=== PATIENT | male | born 1975 | race Caucasian/White ===

== ENCOUNTER 2016-10-20 13:14 | Inpatient (IN) | payer BC ==
[~2016-10-20] VITALS: Ht 185.4 cm; Wt 88.1 kg
[2016-10-20] MEDS ORDERED: SODIUM CHLORIDE 0.9% 1000ML 1,000 ML IV STA (14:31)
[2016-10-20] MEDS ORDERED: MECLIZINE HCL 25 MG TAB PO STA (14:31)
--- NOTE | 2016-10-20 14:37 | EMERGENCY ROOM VISIT NOTE ---
History Report prepared by Anel: Robbie Ramos Under the Supervision of: Cait CruzO. First contact with patient: 14:27 Chief Complaint: DIZZY Stated Complaint: DIZZINESS,LIGHHEADED,DISORIENTED,HEADACHE Nursing Triage Summary: triage ntoe: pt ambulatory to triage. pt reports he has been lightheaded and dizzy since thursday afternoon. History of Present Illness The patient is a 41 year old male who presents to the Emergency Room with complaints of intermittent dizziness that started 2 days ago. He says when he gets dizzy, the room spins and he gets lightheaded. The patient states that eating at times makes the dizziness worse. He adds that he has had trouble walking due to the dizziness, and starting yesterday he has had a headache on the back of his right side. The patient says he has no family doctor currently, and has not been seen for his dizziness so far. The patient states that in the past, he would get dizzy spells occasionally but the spells would go away after a couple hours. He denies any nausea, vomiting, ear ringing, or abdominal pain. The patient states that he has no chronic medical conditions and does not take any daily medications. He denies working outside recently for long periods at a time. Source of History: patient Onset: 2 days ago Position: other (global - dizziness) Quality: other (room spinning) Timing: other (intermittent) Modifying Factors (Worsening): eating Associated Symptoms: + headache, No nausea, No vomiting, No abdominal pain Note: Associated symptoms: Lightheadedness, trouble walking. Denies ear ringing. Review of Systems See HPI for pertinent positives & negatives. A total of 10 systems reviewed and were otherwise negative. Past Medical & Surgical Medical Problems: (1) Abnormal gait (2) No chronic problems Surgical Problems: (1) History of hernia surgery Family History No pertinent family history Social History Smoking Status: Current Every Day Smoker Drug Use: none Marital Status: Housing Status: lives with family Occupation Status: employed Current/Historical Medications No Active Prescriptions or Reported Meds Allergies Coded Allergies: No Known Allergies (Unverified , 10/20/16) Physical Exam Vital Signs Date Time Temp Pulse Resp B/P (MAP) Pulse Ox O2 Delivery O2 Flow Rate FiO2 10/20/16 19:12 Room Air 10/20/16 18:26 83 20 141/77 99 Room Air 10/20/16 16:37 73 16 138/87 97 Room Air 10/20/16 15:22 66 16 154/90 100 Room Air 10/20/16 14:48 72 152/94 75 155/100 81 144/106 10/20/16 14:36 77 10/20/16 13:29 36.9 72 18 153/90 99 Room Air Physical Exam GENERAL: Patient is awake, alert, and in no acute distress. Patient is resting comfortably and showing no signs of anxiety EYES: The conjunctivae are clear. The pupils are round and reactive. EARS, NOSE, MOUTH AND THROAT: The nose is without any evidence of any deformity. Mucous membranes are moist tongue is midline NECK: The neck is nontender and supple. RESPIRATORY: Normal respiratory effort is noted there is no evidence of wheezing rhonchi or rales CARDIOVASCULAR: Regular rate and rhythm noted there no murmurs rubs or gallops normal S1 normal S2 GASTROINTESTINAL: The abdomen is soft. Bowel sounds are present in all quadrants. Abdomen is nontender MUSCULOSKELETAL/EXTREMITIES: There is no evidence of gross deformity full range of motion is noted in the hips and shoulders SKIN: There is no obvious evidence of any rash. There are no petechiae, pallor or cyanosis noted. NEUROLOGIC: Patient is awake alert and oriented x3 strength is symmetric patellar reflexes are 2+ bilaterally Medical Decision & Procedures ER Provider Diagnostic Interpretation: Radiology results as stated below per my review and radiologist interpretation: HEAD WITHOUT CONTRAST (CT) CLINICAL HISTORY: 41 years-old Male presenting with EVALUATE ALTERED MENTAL STATUS/WEAKNESS. TECHNIQUE: Multidetector CT imaging of the head was performed without the use of intravenous contrast. IV contrast: None. A dose lowering technique was used consistent with the principles of ALARA (as low as reasonably achievable). COMPARISON: None. CT DOSE (mGy.cm): The estimated cumulative dose is 691.05 mGy.cm. FINDINGS: Casino Host topogram: Unremarkable. Symmetric apparent dilatation of the temporal horns of the lateral ventricles out of proportion to the size of the remainder of the lateral ventricles. The occipital horns and third ventricle are nondilated. No periventricular hypoattenuation to suggest transependymal flow of CSF. No obstructing mass is noted in the region of the foramen of Humphreys. Brain parenchyma normal in appearance with preserved leach-white differentiation. No mass effect or midline shift. No hemorrhage or acute territorial infarct. No extra-axial fluid collection. Paranasal sinuses and mastoid air cells clear. Calvarium intact. IMPRESSION: 1. Symmetric dilatation of the temporal horns of the lateral ventricles, unexpected for the patient's age. This raises concern for hydrocephalus, however, no other evidence to corroborate this diagnosis. Further evaluation with brain MR could be considered as clinically warranted. 2. No other evidence of acute intracranial pathology. Electronically signed by: Mateo Byrnes M.D. 10/20/2016 3:10 PM Dictated Date/Time: 10/20/2016 3:05 PM CHEST ONE VIEW PORTABLE CLINICAL HISTORY: 41 years-old Male presenting with EVALUATE ALTERED MENTAL STATUS/WEAKNESS. TECHNIQUE: Portable upright AP view of the chest was obtained. COMPARISON: None. FINDINGS: Cardiomediastinal silhouette normal. Lungs and pleural spaces clear. Osseous structures normal. Upper abdomen normal. IMPRESSION: 1. No acute cardiopulmonary disease. Electronically signed by: Mateo Byrnes M.D. 10/20/2016 3:20 PM Dictated Date/Time: 10/20/2016 3:19 PM MRI OF THE BRAIN WITHOUT IV CONTRAST CLINICAL HISTORY: Vertigo. Abnormal CT. COMPARISON STUDY: CT of the brain dated 10/20/2016. TECHNIQUE: MRI of the brain was performed utilizing various T1 and T2-weighted sequences in the axial, sagittal, and coronal planes. IV contrast was not administered for this examination. FINDINGS: Brain parenchyma: There are numerous small foci of T2 signal abnormality scattered throughout the subcortical and periventricular white matter. There is no hemorrhage or mass effect. There is no restricted diffusion to suggest acute ischemia. Leach-white matter differentiation is preserved. No extra-axial fluid collection is seen. The cerebellar tonsils are normal in configuration. Ventricles, sulci, and cisterns: Normal in configuration. Pituitary and sella: Unremarkable. Intracranial vasculature: Normal flow voids are maintained at the skull base. Orbits: The bony orbits are grossly intact. Orbital contents are normal in appearance. Sinuses and mastoids: There is trace mucosal thickening in the left maxillary antrum. The remaining paranasal sinuses and mastoid air cells are clear. Calvarium: Unremarkable. Cervical cord: Partially visualized cervical spinal cord is normal in morphology and signal intensity. IMPRESSION: 1. No acute intracranial abnormality. 2. There is no evidence of hydrocephalus as questioned on the brain CT. 3. There are numerous small foci of T2 signal abnormality scattered throughout the subcortical and periventricular white matter. The appearance is nonspecific and this could represent age advanced microangiopathic change, or less likely a demyelinating process such as multiple sclerosis versus an infectious process such as Lyme disease. Clinical correlation will be essential. Electronically signed by: Luis A Flowers M.D. 10/20/2016 5:21 PM Dictated Date/Time: 10/20/2016 5:14 PM Laboratory Results 10/20/16 14:30 Red Blood Count 5.23, Mean Corpuscular Volume 82.6, Mean Corpuscular Hemoglobin 30.0, Mean Corpuscular Hemoglobin Concent 36.3, Mean Platelet Volume 10.4, Neutrophils (%) (Auto) 76.0, Lymphocytes (%) (Auto) 16.7, Monocytes (%) (Auto) 4.9, Eosinophils (%) (Auto) 1.5, Basophils (%) (Auto) 0.5, Neutrophils # (Auto) 7.70, Lymphocytes # (Auto) 1.69, Monocytes # (Auto) 0.50, Eosinophils # (Auto) 0.15, Basophils # (Auto) 0.05 10/20/16 14:30 Test 10/20/16 14:30 10/20/16 15:25 White Blood Count 10.13 K/uL (4.8-10.8) Red Blood Count 5.23 M/uL (4.7-6.1) Hemoglobin 15.7 g/dL (14.0-18.0) Hematocrit 43.2 % (42-52) Mean Corpuscular Volume 82.6 fL (80-100) Mean Corpuscular Hemoglobin 30.0 pg (25-34) Mean Corpuscular Hemoglobin Concent 36.3 g/dl (32-36) Platelet Count 208 K/uL (130-400) Mean Platelet Volume 10.4 fL (7.4-10.4) Neutrophils (%) (Auto) 76.0 % Lymphocytes (%) (Auto) 16.7 % Monocytes (%) (Auto) 4.9 % Eosinophils (%) (Auto) 1.5 % Basophils (%) (Auto) 0.5 % Neutrophils # (Auto) 7.70 K/uL (1.4-6.5) Lymphocytes # (Auto) 1.69 K/uL (1.2-3.4) Monocytes # (Auto) 0.50 K/uL (0.11-0.59) Eosinophils # (Auto) 0.15 K/uL (0-0.5) Basophils # (Auto) 0.05 K/uL (0-0.2) RDW Standard Deviation 37.2 fL (36.4-46.3) RDW Coefficient of Variation 12.4 % (11.5-14.5) Immature Granulocyte % (Auto) 0.4 % Immature Granulocyte # (Auto) 0.04 K/uL (0.00-0.02) Prothrombin Time 10.7 SECONDS (9.0-12.0) Prothromb Time International Ratio 1.0 (0.9-1.1) Activated Partial Thromboplast Time 27.5 SECONDS (21.0-31.0) Partial Thromboplastin Ratio 1.1 Anion Gap 4.0 mmol/L (3-11) Est Creatinine Clear Calc Drug Dose 116.7 ml/min Estimated GFR () 114.9 Estimated GFR (Non- 99.2 BUN/Creatinine Ratio 8.4 (10-20) Calcium Level 8.4 mg/dl (8.5-10.1) Magnesium Level 2.2 mg/dl (1.8-2.4) Total Bilirubin 0.6 mg/dl (0.2-1) Direct Bilirubin 0.1 mg/dl (0-0.2) Aspartate Amino Transf (AST/SGOT) 17 U/L (15-37) Alanine Aminotransferase (ALT/SGPT) 22 U/L (12-78) Alkaline Phosphatase 97 U/L (45-117) Troponin I < 0.015 ng/ml (0-0.045) Total Protein 6.7 gm/dl (6.4-8.2) Albumin 3.6 gm/dl (3.4-5.0) Lipase 105 U/L (73-393) Thyroid Stimulating Hormone (TSH) 0.865 uIu/ml (0.300-4.500) Lyme Disease IgG Antibody NEG (NEG) Lyme Disease IgM Antibody NEG (NEG) Urine Color YELLOW Urine Appearance CLEAR (CLEAR) Urine pH 5.5 (4.5-7.5) Urine Specific Landers 1.016 (1.000-1.030) Urine Protein NEG (NEG) Urine Glucose (UA) NEG (NEG) Urine Ketones NEG (NEG) Urine Occult Blood NEG (NEG) Urine Nitrite NEG (NEG) Urine Bilirubin NEG (NEG) Urine Urobilinogen NEG (NEG) Urine Leukocyte Esterase NEG (NEG) Laboratory results per my review. Medications Administered Medications (Trade) Dose Ordered Sig/Elda Route Start Time Stop Time Status Last Admin Dose Admin Sodium Chloride 1,000 ml @ 999 mls/hr Q1H1M STAT IV 10/20/16 14:31 10/20/16 15:31 DC 10/20/16 15:22 999 MLS/HR Meclizine HCl (Antivert Tab) 25 mg NOW STAT PO 10/20/16 14:31 10/20/16 14:33 DC 10/20/16 15:22 25 MG ECG Indication: other (dizzy) Rate (beats per minute): 69 Rhythm: normal sinus Findings: no ectopy, other (no acute ST segment abnormalities) ED Course 1430: The patient was evaluated in room B4B. A complete history and physical examination were performed. 1431: Ordered Antivert Tab 25 mg PO, NSS 1000 ml @ 999 mls/hr IV. 1812: I reevaluated the patient and he is resting. The patient verbally expressed understanding and agreement with the treatment plan. The patient will be evaluated for further treatment. 1821: I discussed the patient with Dr. Ritesh Camacho firearms assembly supervisor. He will evaluate the patient for further treatment. Medical Decision Differential diagnosis: Etiologies such as benign positional vertigo, dehydration, hypovolemia, anemia, tumor, infection, hypoglycemia, electrolyte abnormalities, cardiac sources, intracerebral event, toxicologic, neurologic, as well as others were entertained. Medication Reconciliation: I attest that I have personally reviewed the patient' s current medications list. There are no medications on the list. Patient was found to have a slightly elevated blood pressure due to circumstances. The patient is a 41-year-old male who presented to the emergency department for evaluation of dizziness and headache. Patient did not have any focal neurologic deficits. He had an CT the brain which was noted to have hydrocephalus. This reason an MRI was recommended by the radiologist and was obtained in the emergency department. I discussed the patient's laboratory radiographic studies with him including his MRI report. Given the findings I do feel he may need further inpatient evaluation and workup for possible CVA. This reason I discussed his case with the on-call [facility] hospitalist group. They've agreed to evaluate the patient in the emergency apartment for further management and disposition. Consults Time Called: 1814 Consulting Physician: Dr. Ritesh Camacho firearms assembly supervisor Returned Call: 1820 I discussed the patient with Dr. Ritesh Camacho firearms assembly supervisor. He will evaluate the patient for further treatment. Impression Primary Impression: Vertigo Additional Impression: Abnormal MRI Scribe Attestation The scribe's documentation has been prepared under my direction and personally reviewed by me in its entirety. I confirm that the note above accurately reflects all work, treatment, procedures, and medical decision making performed by me. Departure Information Dispostion Being Evaluated By Hospitalist Prescriptions No Active Prescriptions or Reported Meds Referrals No Doctor, Assigned (PCP) Patient Instructions My [facility] Health Problem Qualifiers
[2016-10-20 15:01] LABS: BASO % 0.5 %; BASO ABS # 0.05 K/uL (0-0.2); COMPLETE YES; EOS % 1.5 %; HEMATOCRIT 43.2 % (42-52); IG% 0.4 %; LYMPH % 16.7 %; LYMPH ABS # 1.69 K/uL (1.2-3.4); MEAN CELL VOLUME 82.6 fL (80-100); MEAN CORPUSCULAR HGB CONC 36.3 g/dl (32-36); MEAN PLATELET VOLUME 10.4 fL (7.4-10.4); MONO % 4.9 %; PLATELET COUNT 208 K/uL (130-400); RED BLOOD COUNT 5.23 M/uL (4.7-6.1); WHITE BLOOD COUNT 10.13 K/uL (4.8-10.8)
[2016-10-20 15:08] LABS: PARTIAL THROMBOPLASTIN RATIO 1.1; PROTHROMBIN TIME (PATIENT) 10.7 SECONDS (9.0-12.0)
--- NOTE | 2016-10-20 15:12 | DIAGNOSTIC IMAGING REPORT ---
HEAD WITHOUT CONTRAST (CT) CLINICAL HISTORY: 41 years-old Male presenting with EVALUATE ALTERED MENTAL STATUS/WEAKNESS. TECHNIQUE: Multidetector CT imaging of the head was performed without the use of intravenous contrast. IV contrast: None. A dose lowering technique was used consistent with the principles of ALARA (as low as reasonably achievable). COMPARISON: None. CT DOSE (mGy.cm): The estimated cumulative dose is 691.05 mGy.cm. FINDINGS: Metal Stamping Machine Operator topogram: Unremarkable. Symmetric apparent dilatation of the temporal horns of the lateral ventricles out of proportion to the size of the remainder of the lateral ventricles. The occipital horns and third ventricle are nondilated. No periventricular hypoattenuation to suggest transependymal flow of CSF. No obstructing mass is noted in the region of the foramen of Humphreys. Brain parenchyma normal in appearance with preserved taylor-white differentiation. No mass effect or midline shift. No hemorrhage or acute territorial infarct. No extra-axial fluid collection. Paranasal sinuses and mastoid air cells clear. Calvarium intact. IMPRESSION: 1. Symmetric dilatation of the temporal horns of the lateral ventricles, unexpected for the patient's age. This raises concern for hydrocephalus, however, no other evidence to corroborate this diagnosis. Further evaluation with brain MR could be considered as clinically warranted. 2. No other evidence of acute intracranial pathology. Electronically signed by: Mateo Byrnes M.D. 10/20/2016 3:10 PM Dictated Date/Time: 10/20/2016 3:05 PM
--- NOTE | 2016-10-20 15:21 | DIAGNOSTIC IMAGING REPORT ---
CHEST ONE VIEW PORTABLE CLINICAL HISTORY: 41 years-old Male presenting with EVALUATE ALTERED MENTAL STATUS/WEAKNESS. TECHNIQUE: Portable upright AP view of the chest was obtained. COMPARISON: None. FINDINGS: Cardiomediastinal silhouette normal. Lungs and pleural spaces clear. Osseous structures normal. Upper abdomen normal. IMPRESSION: 1. No acute cardiopulmonary disease. Electronically signed by: Mateo Byrnes M.D. 10/20/2016 3:20 PM Dictated Date/Time: 10/20/2016 3:19 PM
[2016-10-20 15:25] LABS: ALT/SGPT 22 U/L (12-78); AST/SGOT 17 U/L (15-37); BLOOD UREA NITROGEN 8 mg/dl (7-18); BUN/CREATININE RATIO 8.4 (10-20); CALCIUM 8.4 mg/dl (8.5-10.1); CARBON DIOXIDE 29 mmol/L (21-32); CHLORIDE 109 mmol/L (98-107); CREATININE 0.96 mg/dl (0.60-1.40); GLUCOSE 80 mg/dl (70-99); MAGNESIUM 2.2 mg/dl (1.8-2.4); POTASSIUM 3.8 mmol/L (3.5-5.1); SODIUM 142 mmol/L (136-145)
[2016-10-20 15:36] LABS: ALKALINE PHOSPHATASE 97 U/L (45-117); THYROID STIMULATING HORMONE 0.865 uIu/ml (0.300-4.500)
[2016-10-20 15:37] LABS: MANUAL MICROSCOPIC REQUIRED? NO; REVIEW REQ? NO; URINE APPEARANCE CLEAR (CLEAR); URINE BILIRUBIN NEG (NEG); URINE COLOR YELLOW; URINE NITRITE NEG (NEG); URINE PH 5.5 (4.5-7.5); URINE SPECIFIC GRAVITY 1.016 (1.000-1.030); UROBILINOGEN NEG (NEG)
--- NOTE | 2016-10-20 17:23 | DIAGNOSTIC IMAGING REPORT ---
MRI OF THE BRAIN WITHOUT IV CONTRAST CLINICAL HISTORY: Vertigo. Abnormal CT. COMPARISON STUDY: CT of the brain dated 10/20/2016. TECHNIQUE: MRI of the brain was performed utilizing various T1 and T2-weighted sequences in the axial, sagittal, and coronal planes. IV contrast was not administered for this examination. FINDINGS: Brain parenchyma: There are numerous small foci of T2 signal abnormality scattered throughout the subcortical and periventricular white matter. There is no hemorrhage or mass effect. There is no restricted diffusion to suggest acute ischemia. Leach-white matter differentiation is preserved. No extra-axial fluid collection is seen. The cerebellar tonsils are normal in configuration. Ventricles, sulci, and cisterns: Normal in configuration. Pituitary and sella: Unremarkable. Intracranial vasculature: Normal flow voids are maintained at the skull base. Orbits: The bony orbits are grossly intact. Orbital contents are normal in appearance. Sinuses and mastoids: There is trace mucosal thickening in the left maxillary antrum. The remaining paranasal sinuses and mastoid air cells are clear. Calvarium: Unremarkable. Cervical cord: Partially visualized cervical spinal cord is normal in morphology and signal intensity. IMPRESSION: 1. No acute intracranial abnormality. 2. There is no evidence of hydrocephalus as questioned on the brain CT. 3. There are numerous small foci of T2 signal abnormality scattered throughout the subcortical and periventricular white matter. The appearance is nonspecific and this could represent age advanced microangiopathic change, or less likely a demyelinating process such as multiple sclerosis versus an infectious process such as Lyme disease. Clinical correlation will be essential. Electronically signed by: Luis A Flowers M.D. 10/20/2016 5:21 PM Dictated Date/Time: 10/20/2016 5:14 PM
[2016-10-20 18:46] LABS: LYME DISEASE AB IGG NEG (NEG); LYME DISEASE AB IGM NEG (NEG)
[2016-10-20 19:12] VITALS: Ht 185.4 cm; Wt 88.1 kg
[2016-10-20] MEDS ORDERED: ENOXAPARIN 40 MG/0.4 ML SYR SQ SCH (19:30)
[2016-10-20] MEDS ORDERED: ONDANSETRON INJ 2 MG/ML 2 ML VIAL IV PRN (19:30)
--- NOTE | 2016-10-20 19:45 | History and Physical ---
History & Physical Date & Time of Service: Oct 20, 2016 at 19:28 Chief Complaint: Dizziness,Lighheaded,Disoriented,Headache Primary Care Physician: No Doctor, Assigned History of Present Illness Patient is a 41yo man with no known PMH who presents with dizziness over the past two days. Dizziness is intermittent and is described as the room spinning with lightheadedness. States that dizziness is made worse with positional changes and after eating. Patient has experienced dizziness similar to this in the past but for only 1-2 hours at a time before resolving on its own. Associated symptoms include unsteady ambulation, with swaying from side to side. Patient can walk on his own but has to hold onto something for stability. Also endorses a dull headache on the back R side and generalized fatigue. Denies fever, chills, neck stiffness, confusion, LOC, decreased visual acuity, CP, SOB, nausea, vomiting, abdominal pain, weakness of lower extremities or a new rash. Does not have a PCP. States that his insurance stopped covering his previous PCP and he is looking for a new one. Denies a history of stroke, head injury, seizure, heart arrhythmia, Lyme disease. Denies tobacco, alcohol or illicit drug use. Past Medical/Surgical History Medical Problems: (1) No chronic problems Status: Chronic Surgical Problems: (1) History of hernia surgery Status: Resolved Family History No pertinent family history Social History Smoking Status: Never Smoker Alcohol Use: none Drug Use: none Marital Status: Occupational Status: employed Allergies Coded Allergies: No Known Allergies (Unverified , 10/20/16) Home Medications No Active Prescriptions or Reported Meds Review of Systems Ten systems reviewed and negative except as noted in the HPI. Physical Exam Vital Signs Date Time Temp Pulse Resp B/P (MAP) Pulse Ox O2 Delivery O2 Flow Rate FiO2 10/20/16 19:12 Room Air 10/20/16 18:26 83 20 141/77 99 Room Air 10/20/16 16:37 73 16 138/87 97 Room Air 10/20/16 15:22 66 16 154/90 100 Room Air 10/20/16 14:48 72 152/94 75 155/100 81 144/106 10/20/16 14:36 77 10/20/16 13:29 36.9 72 18 153/90 99 Room Air General Appearance: WD/WN, no apparent distress Head: normocephalic, atraumatic Eyes: normal inspection, PERRL, EOMI (no nystagmus ), sclerae normal ENT: hearing grossly normal Neck: supple, no adenopathy, trachea midline Respiratory/Chest: chest non-tender, lungs clear, normal breath sounds, no respiratory distress, no accessory muscle use Cardiovascular: regular rate, rhythm, no edema, no murmur, normal peripheral pulses Abdomen/GI: normal bowel sounds, non tender, soft, no organomegaly Back: normal inspection, no CVA tenderness Extremities/Musculoskelatal: normal inspection, no calf tenderness, normal capillary refill, no pedal edema Neurologic/Psych: plastic printer II-XII nml as tested, no motor/sensory deficits, alert, normal mood/affect, oriented x 3, + abnormal gait (Ataxic with swaying side to side. + Romberg test) Skin: normal color, warm/dry, no rash Diagnostics Laboratory Results Results Past 24 Hours Test 10/20/16 14:30 10/20/16 15:25 Range/Units White Blood Count 10.13 4.8-10.8 K/uL Red Blood Count 5.23 4.7-6.1 M/uL Hemoglobin 15.7 14.0-18.0 g/dL Hematocrit 43.2 42-52 % Mean Corpuscular Volume 82.6 80-100 fL Mean Corpuscular Hemoglobin 30.0 25-34 pg Mean Corpuscular Hemoglobin Concent 36.3 32-36 g/dl Platelet Count 208 130-400 K/uL Mean Platelet Volume 10.4 7.4-10.4 fL Neutrophils (%) (Auto) 76.0 % Lymphocytes (%) (Auto) 16.7 % Monocytes (%) (Auto) 4.9 % Eosinophils (%) (Auto) 1.5 % Basophils (%) (Auto) 0.5 % Neutrophils # (Auto) 7.70 1.4-6.5 K/uL Lymphocytes # (Auto) 1.69 1.2-3.4 K/uL Monocytes # (Auto) 0.50 0.11-0.59 K/uL Eosinophils # (Auto) 0.15 0-0.5 K/uL Basophils # (Auto) 0.05 0-0.2 K/uL RDW Standard Deviation 37.2 36.4-46.3 fL RDW Coefficient of Variation 12.4 11.5-14.5 % Immature Granulocyte % (Auto) 0.4 % Immature Granulocyte # (Auto) 0.04 0.00-0.02 K/uL Prothrombin Time 10.7 9.0-12.0 SECONDS Prothromb Time International Ratio 1.0 0.9-1.1 Activated Partial Thromboplast Time 27.5 21.0-31.0 SECONDS Partial Thromboplastin Ratio 1.1 Sodium Level 142 136-145 mmol/L Potassium Level 3.8 3.5-5.1 mmol/L Chloride Level 109 98-107 mmol/L Carbon Dioxide Level 29 21-32 mmol/L Anion Gap 4.0 3-11 mmol/L Blood Urea Nitrogen 8 7-18 mg/dl Creatinine 0.96 0.60-1.40 mg/dl Est Creatinine Clear Calc Drug Dose 116.7 ml/min Estimated GFR () 114.9 Estimated GFR (Non- 99.2 BUN/Creatinine Ratio 8.4 10-20 Random Glucose 80 70-99 mg/dl Calcium Level 8.4 8.5-10.1 mg/dl Magnesium Level 2.2 1.8-2.4 mg/dl Total Bilirubin 0.6 0.2-1 mg/dl Direct Bilirubin 0.1 0-0.2 mg/dl Aspartate Amino Transf (AST/SGOT) 17 15-37 U/L Alanine Aminotransferase (ALT/SGPT) 22 12-78 U/L Alkaline Phosphatase 97 45-117 U/L Troponin I < 0.015 0-0.045 ng/ml Total Protein 6.7 6.4-8.2 gm/dl Albumin 3.6 3.4-5.0 gm/dl Lipase 105 73-393 U/L Thyroid Stimulating Hormone (TSH) 0.865 0.300-4.500 uIu/ml Lyme Disease IgG Antibody NEG NEG Lyme Disease IgM Antibody NEG NEG Urine Color YELLOW Urine Appearance CLEAR CLEAR Urine pH 5.5 4.5-7.5 Urine Specific [place] 1.016 1.000-1.030 Urine Protein NEG NEG Urine Glucose (UA) NEG NEG Urine Ketones NEG NEG Urine Occult Blood NEG NEG Urine Nitrite NEG NEG Urine Bilirubin NEG NEG Urine Urobilinogen NEG NEG Urine Leukocyte Esterase NEG NEG Diagnostic Radiology CT Head: IMPRESSION: 1. Symmetric dilatation of the temporal horns of the lateral ventricles, unexpected for the patient's age. This raises concern for hydrocephalus, however, no other evidence to corroborate this diagnosis. Further evaluation with brain MR could be considered as clinically warranted. 2. No other evidence of acute intracranial pathology. Brain MRI: IMPRESSION: 1. No acute intracranial abnormality. 2. There is no evidence of hydrocephalus as questioned on the brain CT. 3. There are numerous small foci of T2 signal abnormality scattered throughout the subcortical and periventricular white matter. The appearance is nonspecific and this could represent age advanced microangiopathic change, or less likely a demyelinating process such as multiple sclerosis versus an infectious process such as Lyme disease. Clinical correlation will be essential. Normal EKG Impression Assessment and Plan Patient is a 41yo man with no known PMH who presents with dizziness over the past two days. Intermittent dizziness: -Room spinning, worse with position change, unsteady gait. No nystagmus -Given meclizine without improvement -Likely BPPV. PT eval ordered for Boni's maneuver -Consulted neuro -CT head with dilated ventricles with concern for hydrocephalus -Brain MRI without hemorrhage or mass effect. No restricted diffusion to suggest acute ischemia. No hydrocephalus -Numerous small foci of T2 signal abnormalities scattered throughout the subcortical and periventricular white matter -Could represent age-advanced microangiopathic change. Less likely a demyelinating process such as MS vs an infectious process such as Lyme disease -Considered CVA but denies facial droop, slurred speech, weakness in extremities. No focal neuro deficits on exam. MRI without evidence of ischemia -Considered infectious cause but afebrile, no leukocytosis, negative for Lyme disease antibodies. -If no improvement, will consider an LP DVT Ppx: SCDs Code status: FULL PCP: n/a Dispo: Plan to return home once medically stable Level of Care Med/Surg Advanced Directives Existing Living Will: No Existing Power of Student Financial Aid Manager: No Resuscitation Status FULL RESUSCITATION VTE Prophylaxis VTE Risk Assessment Done? Y/N: Yes Risk Level: Moderate Given or contraindicated: SCD's Social Service Consult None Apply Note ATTENDING ADDENDUM Record reviewed. Patient interviewed and examined. Care coordinated with Gissell Awad PA-C. Please refer to her documentation for patient's history. Briefly, 41 YO male experiencing vertigo x 2 days. EXAM: General- no distress VS- as noted HEENT- unable to visualize TM's due to cerumen Neuro- alert, oriented; PERRL, EOMI; minimal nystagmus with lateral gaze; no facial palsy; no dysarthria; tongue midline; motor strength extremities 5/5 bilaterally; plantar reflexes downgoing; patellar DTR's 1/2; finger to nose: hesitant, relatively slow DATA: Lyme screen negative. CT HEAD IMPRESSION: 1. Symmetric dilatation of the temporal horns of the lateral ventricles, unexpected for the patient's age. This raises concern for hydrocephalus, however, no other evidence to corroborate this diagnosis. Further evaluation with brain MR could be considered as clinically warranted. 2. No other evidence of acute intracranial pathology. Electronically signed by: Mateo Byrnes M.D. 10/20/2016 3:10 PM MRI BRAIN IMPRESSION: 1. No acute intracranial abnormality. 2. There is no evidence of hydrocephalus as questioned on the brain CT. 3. There are numerous small foci of T2 signal abnormality scattered throughout the subcortical and periventricular white matter. The appearance is nonspecific and this could represent age advanced microangiopathic change, or less likely a demyelinating process such as multiple sclerosis versus an infectious process such as Lyme disease. Clinical correlation will be essential. Electronically signed by: Luis A Flowers M.D. 10/20/2016 5:21 PM ASSESSMENT AND PLAN: Vertigo Peripheral vs central. PT eval. Consult Neuro. Abnormal LINE REPAIRER imaging ? significance consult Neuro. Please refer to WILMAR Awad's documentation for discussion of other issues. John Lloyd MD .
[2016-10-20] MEDS ORDERED: IV FLUIDS COMPLETED PRN (20:30)
[2016-10-20 23:52] VITALS: BP 131/81; PULSE 67; TEMP 36.5; O2SAT 95
[2016-10-21] MEDS ORDERED: MECLIZINE HCL 25 MG TAB PO PRN (04:00)
[2016-10-21 07:15] VITALS: BP 134/80; PULSE 67; TEMP 36.9; O2SAT 98
[2016-10-21] MEDS: ACETAMINOPHEN 325 MG TAB PO PRN ×2 (10:18→16:58)
--- NOTE | 2016-10-21 10:20 | DIAGNOSTIC IMAGING REPORT ---
CERVICAL SPINE COMBO CLINICAL HISTORY: 41 years-old Male presenting with abnormal brain mri, no history of cancer or cervical spine surgery, concern for multiple sclerosis/myelinating disease, headache since Thursday without improvement. TECHNIQUE: Multisequence, multiplanar MR imaging of the cervical spine was performed before and after the administration of intravenous contrast. IV contrast: 9 mL of Gadavist. COMPARISON: None. FINDINGS: Localizer images: Unremarkable. Normal cervical lordosis. Vertebral bodies maintain normal height, alignment, and bone marrow signal intensity. Disc heights preserved, although focal disc osteophyte complex noted at C6-7. No significant degenerative change apart from this level. At C6-7, disc osteophyte complex results in significant mass effect on the ventral thecal sac with near complete effacement of CSF. In combination with uncovertebral hypertrophy, moderate right and severe left neural foraminal narrowing result. The cervical spinal cord at this level is contoured and mildly flattened most prominently along the right ventral aspect. Remainder of the cervical spinal cord normal in morphology. No abnormal signal intensity within the spinal cord. Craniocervical junction normal. Paraspinal soft tissues normal. IMPRESSION: Focal degenerative change at C6-7 where there is a disc osteophyte complex resulting in spinal canal stenosis and questionable impingement of the spinal cord. No spinal cord edema or myelomalacia evident. Moderate right and severe left neural foraminal narrowing at this level. Electronically signed by: Mateo Byrnes M.D. 10/21/2016 10:18 AM Dictated Date/Time: 10/21/2016 10:08 AM
[2016-10-21 15:01] VITALS: BP 149/90; PULSE 74; TEMP 36.6; O2SAT 97
[2016-10-21] MEDS ORDERED: TRAMADOL HCL 50 MG TAB PO ONE (16:31)
--- NOTE | 2016-10-21 16:45 | NEUROLOGY CONSULTATION ---
DATE OF CONSULTATION: 10/21/2016 DATE OF CONSULTATION: 10/21/2016 HISTORY OF PRESENT ILLNESS: Agus is 41 years old, is right handed and presented to the Emergency Room yesterday for evaluation of episodic vertigo for the past 2 days accompanied by some gait imbalance and headache that began perhaps 24-36 hours ago and is in the upper suboccipital region, slightly more to the right. He has had episodes of vertigo in the remote past, but these have lasted only 1-2 hours at a time, have been perhaps exacerbated by head movement at that time and were never associated with any headache. There is no real history of prior headaches nor family history for same. He has no primary care physician at present time as his former physician no longer accepts his insurance coverage. He has not had any tick bites. He has not had febrile illnesses. No family members have been sick. He has not had any head injury or neck injury and really denies any neck pain, stiffness, etc. other than the upper cervical occipital junction pain described above in association with the vertigo. He has had no hearing loss, tinnitus or other issues of this type. PAST MEDICAL HISTORY: Reveals no chronic problems. He does have a history of herniorrhaphy. SOCIAL HISTORY: Reveals him to be . He does not consume ethanol. He has never been a smoker. He is employed. ALLERGIES: He has no documented drug allergies. MEDICATIONS: He takes no medications at home. Currently, he is only on meclizine and received 2 doses of Tylenol for pain and little or nothing else. FAMILY HISTORY: Noncontributory. No other individuals suffering from headaches or vertigo. No history of Meniere's disease. REVIEW OF SYSTEMS: Reveals no recent systemic illnesses. No weight loss, weight gain, fevers, sweats, chills. No prior episodes referable to head, eyes, ears, nose and throat other than brief duration transient vertigo perhaps related to head motion in the remote past. He has had no cardiovascular, pulmonary, gastrointestinal, genitourinary, or musculoskeletal issues. Neurologically, he is actually a little worse than he was yesterday, feels more sedated and according to his is not walking as well. PHYSICAL EXAMINATION: VITAL SIGNS: On examination on admission, his blood pressure was 141/77, pulse was 83, respirations were 20. GENERAL: He was a tall, thin man who appeared his stated age. He appeared to be in no acute distress. There were no deformities on examination of the head. HEAD, EYES, EARS, NOSE, AND THROAT EXAMINATION: Normal. There was no mention of nystagmus being seen and head movements did not induce any particular vertigo. NECK: Supple. No carotid bruits were heard. LUNGS: Clear. HEART: Had a regular rhythm. No murmurs were appreciated. EXTREMITIES: Free of edema. There were good pulses. NEUROLOGIC: Today neurologically he is awake, alert, seems a little detached and slow to answer questions, relies on his for some of the answers and appears to be in mild degree of distress only. He has normal extraocular movements, modified Hallpike maneuvers really induce no subjective complaints of vertigo and I can not induce any nystagmus. Visual barron are full. Facial motility and strength is normal. Facial sensation is normal. Speech is clear. Tongue protrudes in the midline. Neck flexor strength is normal. I can get him up and walk without any assistance. He can get up on his heels and toes, slightly off balance but there is no overt ataxia or spasticity. Reflexes are 1+ to 2+ and symmetrical. Toes are downgoing. No Mago's signs are seen. No drift or pronation sign, tremor, tics, choreiform activity. Strength is excellent. I do not see any atrophy or fasciculations. Sensory examination is intact to vibration, light touch and temperature. IMAGING STUDIES: Initially included the possibility of hydrocephalus on the CAT scan. I looked at the scan and was not impressed. An MRI has been done and again my interpretation of the report is that it looks essentially normal, but radiology is describing multiple high T2 intensity signals without enhancement and mention of course the usual differential diagnosis of MS, Lyme disease, etc. I reviewed the chart this morning and ordered an MRI of the neck just to be sure there are not any other areas of potential demyelination there and all that the MRI shows is some degenerative disc disease and osteophyte formation which currently are asymptomatic. LABORATORY STUDIES included basically normal CBC, differential, and normal chemistry screen. It is not clear what is going on here. Certainly my interpretation is that the MRI is essentially normal, I am not all impressed by the findings described at least on my review of the imaging. Admittedly radiology may have a large PACS unit with better resolution and perhaps these high T2 intensity signals described are more prominent on that, but again I am not impressed. The history sounds more like a vestibulopathy, but exam is not very impressive and imaging studies really in my opinion shown nothing that would be producing the vertigo. He is having increasing headaches. He feels a little more dulled. He does not think the Antivert has helped, so at this point I am not sure that what we are seeing is not a side effect of the Antivert in a man who apparently takes very few medications at all. It is possible this is an atypical first migraine, but there is no family history for same and no history for similar events in the patient and this would clearly be a diagnosis of exclusion. There are a number of options here, one would be to stop the Antivert, treat his headaches with analgesia and observe him for another 24 hours to see if things clear. Another option would be to proceed with a lumbar puncture under fluoroscopy and get the usual studies for the disorders mentioned by radiology and to be sure there is not an element of low grade aseptic meningitis presenting in an atypical fashion. I am going to discuss the case with Dr. Lloyd. I see no harm in stopping Antivert and observing him and if he is no better tomorrow or worse going ahead with lumbar puncture. I will check back with him tomorrow. ZOE
--- NOTE | 2016-10-21 16:48 | PROGRESS NOTE ---
DATE: 10/21/2016 ADDENDUM I discussed Flo's case with Dr. Lloyd today. Agus is a little more dull than he was last night, but Dr. Lloyd was concerned about some of his mental affect last night as well and his was more concerned today. We are going to sit tight and observe him overnight, stop the Antivert, avoid any benzodiazepines, treat him with some analgesic medications which are not likely going to have any sedative properties and will reassess tomorrow morning. Physical therapy actually has seen him, they questioned whether he did have a positive Hallpike on the left rotation and actually performed an Boni maneuver. The patient mentioned none of this to me today and I was able to locate the progress note in chart with Dr. Lloyd' aide. I doubt that the Boni's going to make big changes at this point as the patient continues to deny any positional elements to the current vertiginous symptomatology. We discussed another option of performing a CTA to be sure he has not had any dissection of a vertebral artery. I doubt this as we do not see any evidence for stroke on the MRI. His exam is normal and he has had no recent head or neck trauma to our knowledge, so we are going to her back off on this. If things are not better tomorrow morning, we will go ahead with a lumbar puncture in looking for cells, glucose, protein, the standard Lyme antibody and PCR values, [place] virus titers etc and the MS profile, and all this has been discussed with Dr. Lloyd, I would do the lumbar puncture under fluoroscopy and go from there. Frankly again, my interpretation of the MRI is pretty underwhelming and I think it is essentially normal study for this man's age and the MRI of the cervical spine in my opinion is revealing of no significant intracord pathology and the disks that are described are currently asymptomatic and I have nothing to do with his current symptoms. ZOE
[2016-10-21] MEDS: TRAMADOL HCL 50 MG TAB PO PRN (19:51)
--- NOTE | 2016-10-21 22:17 | Progress Note ---
Medicine Progress Note Date & Time of Visit: Oct 21, 2016 at ~ 17:00 . Subjective Persistent vertigo. Posterior headache. No fever. No photophobia. No nuchal rigidity. Some nausea, no emesis. No chest pain. No cough or shortness of breath. . Objective Last 8 Hrs Date Time Temp Pulse Resp B/P (MAP) Pulse Ox O2 Delivery O2 Flow Rate FiO2 10/21/16 16:20 Room Air 10/21/16 15:01 36.6 74 20 149/90 (109) 97 Room Air Physical Exam: General- no acute distress Neck- supple Lungs- clear Heart- regular Abdomen- normal bowel sounds, soft, nontender Extremities- no pretibial edema or calf tenderness Neuro- alert, oriented; PERRL, EOMI; no nystagmus appreciated; no facial palsy; motor strength extremities grossly intact . Assessment & Plan VERTIGO Mechanism uncertain. No benefit from meclizine, so will discontinue. Erinn-Hallpike testing negative on right, positive on left. Boni maneuver performed. Continue PT. HEADACHE / ? ABNORMAL NEUROIMAGING CT head demonstrated dilatation of temporal horns of the lateral ventricles, raising possibility of hydrocephalus. MRI brain demonstrated numerous small foci of T2 signal abnormality scattered throughout the subcortical and periventricular white matter felt to be nonspecific findings possibly representing small vessel ischemic changes or a demyelinating process. Neurology consulted. EEG planned for tomorrow. Consider LP if ongoing concerns. VTE PROPHYLAXIS SCD's. DISPOSITION Expected discharge to home. Needs to establish with new PCP. . Consultants: Neurology . Procedures: CT head MRI brain PT . Current Inpatient Medications: Current Inpatient Medications Medications (Trade) Dose Ordered Sig/Elda Route Start Time Stop Time Status Last Admin Dose Admin Acetaminophen (Tylenol Tab) 650 mg Q4H PRN PO 10/20/16 19:30 11/19/16 19:29 10/21/16 16:58 650 MG Ondansetron HCl (Zofran Inj) 4 mg Q6H PRN IV 10/20/16 19:30 11/19/16 19:29 Miscellaneous (Iv Fluids Completed) 1 ea PRN PRN N/A 10/20/16 20:30 10/20/17 20:29 Tramadol HCl (Ultram Tab) 100 mg Q6H PRN PO 10/21/16 16:45 11/20/16 16:44 10/21/16 19:51 100 MG
[2016-10-21 23:44] VITALS: BP 141/87; PULSE 63; TEMP 36.5; O2SAT 97
[2016-10-22 07:16] VITALS: BP 132/80; PULSE 62; TEMP 36.9; O2SAT 98
[2016-10-22] MEDS: TRAMADOL HCL 50 MG TAB PO PRN ×2 (07:28→14:49)
[2016-10-22] MEDS: ACETAMINOPHEN 325 MG TAB PO PRN ×2 (11:29→18:34)
[2016-10-22 14:50] VITALS: BP 156/84; PULSE 68
[2016-10-22 15:01] VITALS: BP 144/83; PULSE 66; TEMP 37.3; O2SAT 97
--- NOTE | 2016-10-22 15:24 | ELECTROENCEPHALOGRAPH REPORT ---
REQUESTING: Dr. Casaino. CLINICAL DIAGNOSIS: Three days of vertigo, headaches and low grade confusion, question encephalopathy. ELECTROENCEPHALOGRAM DIAGNOSIS: Essentially normal during wakefulness. DESCRIPTION OF TRACING: This EEG was done as a bedside recording and is of excellent technical quality with a few muscle movement artifacts being seen. A simultaneous video analysis of patient movement and behavior was also obtained. Photic stimulation is the only stimulus parameter utilized. Hyperventilation was not performed. Drowsiness and light sleep were not recorded. Under these conditions, there is evidence for normal background rhythm in the alpha range of up to 10 Hz of maximum frequency and 30 microvolts of maximum amplitude. This is maximum posterior head regions bilaterally symmetrical. Polymorphic mid frequency theta activity is seen over all head regions without clear focal or regional predominance. Anterior head region maximum bilaterally symmetrical low voltage fast activity in the beta range is present. Photic stimulation provokes a modest driving response without a photomyogenic or photoparoxysmal component. At no time during the waking tracing is there evidence for potentially epileptogenic activity in the form of polyspike or spike wave bursts, focal sharp waves or focal spikes. INTERPRETATION: This EEG is essentially normal during wakefulness without evidence for focal or generalized encephalopathy and without evidence for potentially epileptogenic activity.
[2016-10-22 16:00] VITALS: O2SAT 97
--- NOTE | 2016-10-22 16:35 | PROGRESS NOTE ---
DATE: 10/22/2016 SUBJECTIVE: Agus looks largely the same as he did yesterday. His feels he is about the same. He still has somewhat dull detached affect and according to what I can glean from his and the nurse's notes, he was ambulatory but required careful observation and continues to be unstable without any clear lateralizing neurologic signs but with persistent headache. Again on exam, I do not see any nystagmus. His facial motility and strength is normal. He has minimal if any evidence of weakness of asymmetrical type. His [id number] and point to point testing is stable. There are no cerebellar signs. Reflexes are 1+. Toes are downgoing. No Mago signs are seen. It was not clear what is going on here. His EEG is normal. He has nothing really hard on examination to suggest a clearcut vestibulopathy and imaging studies have not shown anything of significance other than some high T2 intensity signals which to my eye are very questionable and really are nondiagnostic. At this point, I do not think we have much choice but to go ahead with a lumbar puncture as outlined in my prior notes with CSF analysis for cells, glucose, protein, West Nile virus, Lyme disease, etc and certainly the MS profile which we need to do because of the radiology interpretation of the MRI. I am going to contact Dr. Lloyd and will try to set the study up and will go from there. Besides analgesia, at this point, I do not have any therapeutic suggestions and certainly if the CSF is normal, as I suspect it will be, then we may end up with an empiric trial of steroids acting on the assumption that this may be a protracted migraine with vertiginous aura, although he has never had one before nor is there a positive family history for same, so this really becomes a diagnosis of exclusion. I am not sure we are going to need to reimage him at some point in the future. While we did not see anything on the initial scan, the persistence of symptoms, might dictate at least performance with a noncontrast MRI in the next day or two, if he does not improve. ZOE
--- NOTE | 2016-10-22 19:57 | Progress Note ---
Medicine Progress Note Date & Time of Visit: Oct 22, 2016 at 18:50 . Subjective Persistent vertigo and ataxia. Persistent headache, although tramadol helps. No fever. No pharyngitis. No cough. No nausea, vomiting, diarrhea. . Objective Last 8 Hrs Date Time Temp Pulse Resp B/P (MAP) Pulse Ox O2 Delivery O2 Flow Rate FiO2 10/22/16 16:00 97 Room Air 10/22/16 15:01 37.3 66 16 144/83 (103) 97 Room Air 10/22/16 14:50 68 156/84 (108) Physical Exam: General- no distress Neck- supple Lungs- clear to auscultation Heart- RRR Abdomen- normal bowel sounds, soft, nontender Extremities- no pretibial edema or calf tenderness Neuro- alert, oriented; PERRL, EOMI; no nystagmus appreciated; no facial palsy; motor strength extremities grossly intact . Assessment & Plan VERTIGO Mechanism uncertain. No benefit from meclizine, so it was discontinued. Erinn-Hallpike testing negative on right, positive on left. Boni maneuver performed without significant benefit. Continue PT. HEADACHE / ? ABNORMAL NEUROIMAGING CT head demonstrated dilatation of temporal horns of the lateral ventricles, raising possibility of hydrocephalus. MRI brain demonstrated numerous small foci of T2 signal abnormality scattered throughout the subcortical and periventricular white matter felt to be nonspecific findings possibly representing small vessel ischemic changes or a demyelinating process. Neurology consulted. EEG essentially normal. LP under fluoro recommended by Neuro. VTE PROPHYLAXIS SCD's. DISPOSITION Expected discharge to home. Needs to establish with new PCP. . Consultants: Neurology . Procedures: CT head MRI brain PT . Current Inpatient Medications: Current Inpatient Medications Medications (Trade) Dose Ordered Sig/Elda Route Start Time Stop Time Status Last Admin Dose Admin Acetaminophen (Tylenol Tab) 650 mg Q4H PRN PO 10/20/16 19:30 11/19/16 19:29 10/22/16 18:34 650 MG Ondansetron HCl (Zofran Inj) 4 mg Q6H PRN IV 10/20/16 19:30 11/19/16 19:29 Miscellaneous (Iv Fluids Completed) 1 ea PRN PRN N/A 10/20/16 20:30 10/20/17 20:29 Tramadol HCl (Ultram Tab) 100 mg Q6H PRN PO 10/21/16 16:45 11/20/16 16:44 10/22/16 14:49 100 MG
[2016-10-22 23:10] VITALS: BP 143/88; PULSE 60; TEMP 36.6; O2SAT 96
[2016-10-23] MEDS: ACETAMINOPHEN 325 MG TAB PO PRN ×3 (03:42→17:22)
[2016-10-23 07:28] VITALS: BP 143/86; PULSE 64; TEMP 36.5; O2SAT 98
[2016-10-23 13:52] LABS: CSF APPEARANCE CLEAR; CSF COLOR COLORLESS; CSF XANTHOCHROMIC NO XANTHOCHROMIA
[2016-10-23 13:56] LABS: CSF CHEMISTRY TUBE # 1
--- NOTE | 2016-10-23 13:57 | DIAGNOSTIC IMAGING REPORT ---
FLUOROSCOPIC GUIDED LUMBAR PUNCTURE CLINICAL HISTORY: Vertigo. PROCEDURE: The risks, benefits, and alternatives to the procedure is discussed with the patient who voiced understanding. Written informed consent was obtained. The patient was placed prone on the fluoroscopy table. The lower back was prepped and draped in the usual sterile fashion. 1% lidocaine was used for local anesthesia. A 20-gauge spinal needle was inserted into the L3-L4 interlaminar space, and approximately 10 cc of clear colorless cerebrospinal fluid was removed. The patient tolerated the procedure well. There were no immediate complications. The patient was then returned to the medical floor for further observation. Fluoroscopy time: 0.2 minutes. IMPRESSION: Fluoroscopic guided lumbar puncture with removal of approximately 10 cc of cerebrospinal fluid. There were no immediate complications. Electronically signed by: Luis A Flowers M.D. 10/23/2016 1:55 PM Dictated Date/Time: 10/23/2016 1:53 PM
[2016-10-23 14:06] LABS: CSF TOTAL PROTEIN 33.4 mg/dl (15.0-45.0)
[2016-10-23 16:00] VITALS: O2SAT 94
[2016-10-23 16:02] VITALS: BP 144/91; PULSE 74; TEMP 36.6; O2SAT 94
--- NOTE | 2016-10-23 16:40 | PROGRESS NOTE ---
DATE: 10/23/2016 SUBJECTIVE: Agus looks about the same and his agrees, but frankly I think he is a little more animated today and responds more to questions. He still complains of vertigo and it is very hard to pin this down. At times it sounds like he is describing positional vertigo of relatively brief duration but then he talks about having a chronic sense of imbalance and when he gets up and walks, his feels he is unsteady, but at the bedside today, he has normal extraocular movements, I cannot bring on any nystagmus. Hallpike maneuvers are negative. Speech is clear. His cranial nerves are intact. There is no cerebellar dysmetria, [id number] or past pointing deficits. Reflexes are 1+. Toes are down. Strength is good and sensation is intact. I did not test gait because he is post-lumbar puncture, which thus far looks to be normal with a normal glucose, normal protein, only 3 cells. A lot of the laboratory studies are pending. Just to be on the safe side and to be sure we did not miss a small cerebellar infarction, I am going to repeat the MRI tomorrow with and without contrast, I am going to check an MRA of the cervical vessels and the intracranial circulation, but frankly I doubt this is the case. I probably start him on some steroids tomorrow 60 mg in the morning as I am suspicious that some of this may be a vascular headache variant with a migrainous vertigo, although he has never had a migraine before, there is no family history and as I mentioned before, this is a bit of a stretch but we do not have any other reasonable therapeutic options at this point. His meclizine was not working and I do not want to dull this man's mental status with benzodiazepines. I will check back on him tomorrow afternoon. ZOE
--- NOTE | 2016-10-23 21:32 | Progress Note ---
Medicine Progress Note Date & Time of Visit: Oct 23, 2016 at 16:10 . Subjective LP went well earlier today. Feels about the same. Ongoing vertigo, ataxia. No fever. No other complaints. . Objective Last 8 Hrs Date Time Temp Pulse Resp B/P (MAP) Pulse Ox O2 Delivery O2 Flow Rate FiO2 10/23/16 16:02 36.6 74 18 144/91 (108) 94 Room Air 10/23/16 16:00 94 Room Air Physical Exam: General- no distress Neck- supple Lungs- clear Heart- RRR Abdomen- normal bowel sounds, soft, nontender Extremities- no pretibial edema or calf tenderness Neuro- alert, oriented; PERRL, EOMI; no nystagmus appreciated; no facial palsy; motor strength extremities grossly intact . Laboratory Results: Last 24 Hours Test 10/23/16 13:25 10/23/16 13:59 CSF Color COLORLESS CSF Appearance CLEAR CSF WBC 0 /uL CSF RBC 0 /uL CSF Xanthrochromic NO XANTHOCHROMIA CSF Cell Count Tube # 3 CSF Polynuclear WBCs (%) % CSF Chemistry Tube # 1 CSF Glucose 51 mg/dl CSF Total Protein 33.4 mg/dl Random Glucose 103 mg/dl Date/Time Source Procedure Growth Status 10/23/16 13:25 Cerebral Spinal Fluid Cryptococcal Antigen - Final NO CRYPTOCOCCAL ANTIGEN DETECTED Complete 10/23/16 13:25 Cerebral Spinal Fluid Gram Stain - Final Resulted 10/23/16 13:25 Cerebral Spinal Fluid CSF Culture Pending Resulted Assessment & Plan VERTIGO / ATAXIA / ? ABNORMAL NEUROIMAGING Etiology uncertain. No benefit from meclizine, so it was discontinued. [place]-Hallpike testing negative on right, positive on left. Boni maneuver performed without significant benefit. Continue PT. CT head demonstrated dilatation of temporal horns of the lateral ventricles, raising possibility of hydrocephalus. MRI brain demonstrated numerous small foci of T2 signal abnormality scattered throughout the subcortical and periventricular white matter felt to be nonspecific findings possibly representing small vessel ischemic changes or a demyelinating process. Neurology consulted. EEG essentially normal. LP performed today: 0 WBC's, 0 RBC's, glucose 51, protein 33. Lyme PCR, West Nile AB, VDRL, MS screen pending. F/U MRI with MRA ordered. Neuro starting trial of prednisone for possible migrainous vertigo. VTE PROPHYLAXIS SCD's. DISPOSITION Expected discharge to home, although may possibly need inpt rehab. Needs to establish with new PCP. . Consultants: Neurology . Procedures: CT head MRI brain PT . Current Inpatient Medications: Current Inpatient Medications Medications (Trade) Dose Ordered Sig/Elda Route Start Time Stop Time Status Last Admin Dose Admin Acetaminophen (Tylenol Tab) 650 mg Q4H PRN PO 10/20/16 19:30 11/19/16 19:29 10/23/16 17:22 650 MG Ondansetron HCl (Zofran Inj) 4 mg Q6H PRN IV 10/20/16 19:30 11/19/16 19:29 Miscellaneous (Iv Fluids Completed) 1 ea PRN PRN N/A 10/20/16 20:30 10/20/17 20:29 Tramadol HCl (Ultram Tab) 100 mg Q6H PRN PO 10/21/16 16:45 11/20/16 16:44 10/22/16 14:49 100 MG Prednisone (PredniSONE TAB) 60 mg DAILYBB PO 10/24/16 06:30 11/23/16 06:29
[2016-10-24 00:09] VITALS: BP 125/87; PULSE 71; TEMP 36.4; O2SAT 94
[2016-10-24] MEDS: ACETAMINOPHEN 325 MG TAB PO PRN ×3 (05:49→21:55)
[2016-10-24 07:34] VITALS: BP 133/84; PULSE 77; TEMP 36.9; O2SAT 98
--- NOTE | 2016-10-24 12:42 | DIAGNOSTIC IMAGING REPORT ---
MR ANGIOGRAM OF THE BRAIN CLINICAL HISTORY: Abnormal gait. Vertigo. Headache. COMPARISON STUDY: MRI of the brain performed concurrently on 10/24/2016. TECHNIQUE: 3-D [id number] MR angiography of the intracranial circulation is performed. 3-D tumble views are created and assessed. IV contrast was not administered for this examination. FINDINGS: There is a large left posterior communicating artery. The internal carotid arteries are widely patent bilaterally, as are the anterior and middle cerebral arteries. The vertebrobasilar system and posterior cerebral arteries are widely patent. The left vertebral artery is dominant. There is no aneurysm, high-grade stenosis, or focal vessel cutoff seen throughout the intracranial circulation. The brain parenchyma is normal as visualized. IMPRESSION: Unremarkable MR angiogram of the brain. Electronically signed by: Luis A Flowers M.D. 10/24/2016 12:40 PM Dictated Date/Time: 10/24/2016 12:38 PM
--- NOTE | 2016-10-24 12:52 | DIAGNOSTIC IMAGING REPORT ---
MRI OF THE BRAIN COMBO CLINICAL HISTORY: Vertigo. Abnormal gait. Headache COMPARISON STUDY: CT and MRI of the brain dated 10/20/2016. TECHNIQUE: MRI of the brain was performed utilizing various T1 and T2-weighted sequences in the axial, sagittal, and coronal planes. Contrast-enhanced sequences are obtained following the administration of 9 cc of Gadavist. FINDINGS: Brain parenchyma: There are numerous small foci of T2 signal abnormality scattered throughout the subcortical and periventricular white matter. There is no hemorrhage or mass effect. There is no restricted diffusion to suggest acute ischemia. No enhancing mass lesion is seen on the postcontrast images. Leach-white matter differentiation is preserved. No extra-axial fluid collection is seen. The cerebellar tonsils are normal in configuration. Ventricles, sulci, and cisterns: Normal in configuration. Pituitary and sella: Unremarkable. Intracranial vasculature: Normal flow voids are maintained at the skull base. Orbits: The bony orbits are grossly intact. Orbital contents are normal in appearance. Sinuses and mastoids: There is trace mucosal thickening in the left maxillary antrum. The remaining paranasal sinuses and mastoid air cells are clear. Calvarium: Unremarkable. Cervical cord: Partially visualized cervical spinal cord is normal in morphology and signal intensity. IMPRESSION: 1. No acute intracranial abnormality and no significant change from 10/20/2016. 2. There is unchanged appearance of numerous and nonspecific small foci of T2 signal abnormality scattered throughout the subcortical and periventricular white matter as compared to previous. Electronically signed by: Luis A Flowers M.D. 10/24/2016 12:51 PM Dictated Date/Time: 10/24/2016 12:41 PM
--- NOTE | 2016-10-24 13:04 | DIAGNOSTIC IMAGING REPORT ---
MRA OF THE NECK WITH AND WITHOUT CONTRAST CLINICAL HISTORY: Possible cerebellar cerebrovascular accident. Vertigo. Abnormal gait. COMPARISON STUDY: None. TECHNIQUE: Unenhanced and contrast-enhanced MRA of the neck was performed. Injection of 9 mL of Gadavist IV was uneventful. NASCET criteria were utilized to estimate the degree of carotid stenosis. FINDINGS: The bilateral common carotid, internal carotid and vertebral arteries are patent. There is no significant stenosis within these vessels. Caliber is normal. There is no evidence for dissection. The left vertebral artery is dominant. IMPRESSION: Normal MRA of the neck. Electronically signed by: Severo López M.D. 10/24/2016 1:02 PM Dictated Date/Time: 10/24/2016 12:59 PM
[2016-10-24] MEDS: TRAMADOL HCL 50 MG TAB PO PRN (13:11)
--- NOTE | 2016-10-24 14:47 | PROGRESS NOTE ---
DATE: 10/24/2016 DATE: 10/24/2016 Agus had an episode of transient right arm numbness today, but this was very brief duration and left no deficits. He still has the vertigo and headache which he rates on a scale of 7/10. He now talks about some oscillopsia. This is the first day I have had him be this precise and when he looks primarily to the left there is movement of the objects from left to right and on extremes of gaze to the left I do see a few beats of nystagmus so I am beginning to think there is an element of vestibulopathy here but the headache is unusual and this still could be a protracted migrainous affair with vertigo. The remainder of the exam is normal including testing for potential cervical sensory radiculopathy with appropriated neck flexion, extension and lateral rotation whihc would be important in light of his dicumented ddd of the cervical spine and the transient paresthesias of the right arm reported above. The MRI and MRA studies are again normal showing a very few high T2 intensity signals with nonspecific type, nothing in the vertebral arteries or the posterior circulation. At this point, then I am going to start him on some meclizine in low dose, continue the prednisone. I will see him tomorrow and we will go from there. MTDD
[2016-10-24 15:11] VITALS: BP 149/89; PULSE 107; TEMP 36.6; O2SAT 96
[2016-10-24] MEDS: MECLIZINE HCL 12.5 MG TAB PO SCH (17:35)
--- NOTE | 2016-10-24 18:44 | Progress Note ---
Medicine Progress Note Date & Time of Visit: Oct 24, 2016 at ~ 17:00 . Subjective Persistent vertigo and ataxia. Gait unsteady. No fever, cough, pharyngitis. No nausea or vomiting. . Objective Last 8 Hrs Date Time Temp Pulse Resp B/P (MAP) Pulse Ox O2 Delivery O2 Flow Rate FiO2 10/24/16 17:00 Room Air 10/24/16 15:11 36.6 107 18 149/89 (109) 96 Room Air 10/24/16 11:21 Room Air Physical Exam: General- no distress Neck- supple Lungs- clear Heart- RRR Abdomen- normal bowel sounds, soft, nontender Extremities- no pretibial edema or calf tenderness Neuro- alert, oriented; PERRL, EOMI; mild nystagmus with left lateral gaze; no facial palsy; motor strength extremities grossly intact . Assessment & Plan VERTIGO / ATAXIA / ? ABNORMAL NEUROIMAGING Etiology uncertain. No benefit from meclizine, so it was discontinued. Erinn-Hallpike testing negative on right, positive on left. Boni maneuver performed without significant benefit. Continue PT. CT head demonstrated dilatation of temporal horns of the lateral ventricles, raising possibility of hydrocephalus. MRI brain demonstrated numerous small foci of T2 signal abnormality scattered throughout the subcortical and periventricular white matter felt to be nonspecific findings possibly representing small vessel ischemic changes or a demyelinating process. Neurology consulted. EEG essentially normal. LP performed 10/23: 0 WBC's, 0 RBC's, glucose 51, protein 33. Lyme PCR, West Nile AB, VDRL, MS screen pending. Repeat MRA today- small foci of T2 signal abnormality in the subcortical and periventricular white matter, no acute ischemic event or other acute process. MRA of cervical vessels and intracranial vessels unremarkable. Receiving trial of prednisone for possible migrainous vertigo. VTE PROPHYLAXIS SCD's. DISPOSITION Patient does not feel comfortable being discharged yet due to ongoing symptoms and unsteady gait. Expected discharge to home, although may possibly need inpt rehab. Needs to establish with new PCP. . Consultants: Neurology . Procedures: CT head MRI brain PT . Current Inpatient Medications: Current Inpatient Medications Medications (Trade) Dose Ordered Sig/Elda Route Start Time Stop Time Status Last Admin Dose Admin Acetaminophen (Tylenol Tab) 650 mg Q4H PRN PO 10/20/16 19:30 11/19/16 19:29 10/24/16 10:57 650 MG Ondansetron HCl (Zofran Inj) 4 mg Q6H PRN IV 10/20/16 19:30 11/19/16 19:29 Miscellaneous (Iv Fluids Completed) 1 ea PRN PRN N/A 10/20/16 20:30 10/20/17 20:29 Tramadol HCl (Ultram Tab) 100 mg Q6H PRN PO 10/21/16 16:45 11/20/16 16:44 10/24/16 13:11 100 MG Prednisone (PredniSONE TAB) 60 mg DAILYBB PO 10/24/16 06:30 11/23/16 06:29 10/24/16 17:34 60 MG Meclizine HCl (Antivert Tab) 12.5 mg AC PO 10/24/16 16:30 11/23/16 16:29 10/24/16 17:35 12.5 MG
[2016-10-25 00:12] VITALS: BP 140/84; PULSE 83; TEMP 36.7; O2SAT 95
[2016-10-25] MEDS: TRAMADOL HCL 50 MG TAB PO PRN ×2 (00:40→08:31)
[2016-10-25] MEDS: MECLIZINE HCL 12.5 MG TAB PO SCH ×2 (06:07→11:42)
[2016-10-25 08:11] VITALS: BP 138/88; PULSE 72; TEMP 36.5; O2SAT 97
[2016-10-25 15:45] VITALS: BP 136/80; PULSE 76; TEMP 36.6; O2SAT 95
--- NOTE | 2016-10-25 16:00 | PROGRESS NOTE ---
DATE: 10/25/2016 DATE: 10/25/2016 Agus actually looks better today. He states he feels a little better. He has less subjective oscillopsia when looking at objects across the room and on exam the minor nystagmus that I saw yesterday on extremes of left gaze seems to be less. He has been up and ambulatory with a walker, still feels off balance but on exam with the exception of the nystagmus there is very little and he has otherwise intact cranial nerves and now more interactive mental status, no tremor, tics, choreiform activity, reflex asymmetry, weakness and no loss of sensation. In this regard, he has had no further issues with the transient paresthesia of the right arm. His headache remains present, but I have the impression it is lower as he is refusing some of his offered pain medications and at this point he is tolerating the Antivert which initially I thought may have been a factor and causing his sedated somewhat detached appearance. His however tells me that this is his baseline at home so at this time I think we can safely increase the Antivert to 25 mg 3 times a day, continue the steroids and I will check with him tomorrow afternoon and if he is doing well at that point he probably could be discharged either tomorrow afternoon or Thursday on a tapering course of steroids and chronic Antivert. We will see what the CSF shows over a period of time. He will need a neurology followup, probably about 3-4 weeks, but frankly I think he ought to see ear, nose and throat as this looks very much like vestibulopathy and VNG testing might be helpful in establishing this diagnosis. MTDD
--- NOTE | 2016-10-25 16:05 | Progress Note ---
Internal Med Progress Note Date of Service: Oct 25, 2016. Provider Documentation: SUBJECTIVE: still dizzy and wobbly on ambulation but thinks some what better than yesterday no headaches no blurry vision no numbness in extremities afebrile no sob OBJECTIVE: Vital Signs-as noted below Exam: General-alert and oriented. Not in distress ENT-normal hearing Neck-no neck masses Lungs-cta b/l no wheezing or crackles Heart-s1 and s2 heard regular rate and rhythm, no murmurs Abdomen-soft bowel sounds present non tender no distension Extremities no edema no erythema Neuro-alert and oriented, non focal moves extremities Lab data as noted below. ASSESSMENT & PLAN: VERTIGO / ATAXIA / Etiology ?. No benefit from meclizine, Had Erinn-Hallpike testing which was negative on right, positive on left. Boni maneuver was performed without significant benefit. To continue PT. Initially CT head demonstrated dilatation of temporal horns of the lateral ventricles, raising possibility of hydrocephalus.and then MRI brain done which demonstrated numerous small foci of T2 signal abnormality scattered throughout the subcortical and periventricular white matter felt to be nonspecific findings possibly representing small vessel ischemic changes or a demyelinating process. Neurology consulted. EEG was done which was essentially normal. LP performed which was unremarkable. Awaiting Lyme PCR, West Nile AB, VDRL, MS screen pending. repeat mri/mra head unremarkable started on prednisone for possible migraines per neurology will check vitamin b1, b12 levels VTE PROPHYLAXIS SCD's. DISPOSITION to be determined Vital Signs: Date Time Temp Pulse Resp B/P (MAP) Pulse Ox O2 Delivery O2 Flow Rate FiO2 10/25/16 15:45 36.6 76 18 136/80 (98) 95 Room Air 10/25/16 10:30 Room Air 10/25/16 08:11 36.5 72 18 138/88 (105) 97 Room Air 10/25/16 00:12 36.7 83 16 140/84 (102) 95 Room Air 10/25/16 00:00 Room Air 10/24/16 17:00 Room Air
[2016-10-25] MEDS: MECLIZINE HCL 25 MG TAB PO SCH (16:31)
[2016-10-25 23:52] VITALS: BP 129/83; PULSE 60; TEMP 36.8; O2SAT 98
[2016-10-26] MEDS: MECLIZINE HCL 25 MG TAB PO SCH ×3 (06:22→16:41)
[2016-10-26 07:50] VITALS: BP 138/89; PULSE 66; TEMP 36.7; O2SAT 97
[2016-10-26] MEDS: TRAMADOL HCL 50 MG TAB PO PRN ×2 (10:02→18:11)
[2016-10-26] MEDS ORDERED: THIAMINE HCL 100 MG/ML 2 ML VIAL IV STA (13:12)
[2016-10-26] MEDS ORDERED: MULTI-VITAMIN INFUSION INJ 10 ML, THIAMINE HCL INJ 100 MG, FoLIC ACID INJ 1 MG in SODIU... IV ONE (13:15)
[2016-10-26] MEDS ORDERED: THIAMINE HCL INJ 100 MG in SYRINGE 9 ML IV ONE (13:45)
[2016-10-26] MEDS: CYANOCOBALAMIN 1000 MCG/ML VIAL IM SCH (14:09)
[2016-10-26] MEDS: FoLIC ACID INJ 1 MG in SYRINGE 9.8 ML IV SCH (14:09)
--- NOTE | 2016-10-26 14:55 | Progress Note ---
Internal Med Progress Note Date of Service: Oct 26, 2016. Provider Documentation: SUBJECTIVE: still dizzy and wobbly on ambulation eating ok no nausea no sob afebrile OBJECTIVE: Vital Signs-as noted below Exam: General-alert and oriented. Not in distress ENT-normal hearing Neck-no neck masses Lungs-cta b/l no wheezing or crackles Heart-s1 and s2 heard regular rate and rhythm, no murmurs Abdomen-soft bowel sounds present non tender no distension Extremities no edema no erythema Neuro-alert and oriented, non focal moves extremities Lab data as noted below. ASSESSMENT & PLAN: VERTIGO / ATAXIA / Etiology ?. No benefit from meclizine, Had [place]-Hallpike testing which was negative on right, positive on left. Boni maneuver was performed without significant benefit. To continue PT. Initially CT head demonstrated dilatation of temporal horns of the lateral ventricles, raising possibility of hydrocephalus.and then MRI brain done which demonstrated numerous small foci of T2 signal abnormality scattered throughout the subcortical and periventricular white matter felt to be nonspecific findings possibly representing small vessel ischemic changes or a demyelinating process. Neurology consulted. EEG was done which was essentially normal. LP performed which was unremarkable. Awaiting Lyme PCR, [place] Nile AB, VDRL, MS screen pending. repeat mri/mra head unremarkable started on prednisone for possible migraines per neurology vitamin b12 and folate levels low but not related to ongoing symptoms as per neurology to taper steroids and monitor to f/u rheumatology workup Vitamin deficiencies will replace needs close followup with pcp. VTE PROPHYLAXIS SCD's. DISPOSITION to be determined possible d/c in 1-2 days Vital Signs: Date Time Temp Pulse Resp B/P (MAP) Pulse Ox O2 Delivery O2 Flow Rate FiO2 10/26/16 10:14 Room Air 10/26/16 07:50 36.7 66 16 138/89 (105) 97 Room Air 10/26/16 00:32 Room Air 10/25/16 23:52 36.8 60 16 129/83 (98) 98 Room Air 10/25/16 20:00 Room Air 10/25/16 16:15 Room Air 10/25/16 15:45 36.6 76 18 136/80 (98) 95 Room Air Lab Results: Results Past 24 Hours Test 10/26/16 05:13 10/26/16 14:33 Range/Units Vitamin B12 Level 165 211-911 pg/mL Folate 5.21 >5.38 ng/mL
[2016-10-26 16:14] VITALS: BP 150/99; PULSE 107; TEMP 36.9; O2SAT 96
--- NOTE | 2016-10-26 17:09 | PROGRESS NOTE ---
DATE: 10/26/2016 Agus looks a little better. He felt well last night but then this morning awakened again with the vertigo and is now back on his prednisone and round the clock Antivert 25 mg 3 times a day. He seems to be tolerating this well. On exam today, his speech is clear. He is more interactive. He has at most minimal nystagmus to gaze on the left, does talk about some oscillations in his vision at far distances, yet can read. He is a little unstable walking, but this is pretty much what has been going on for the last few days and there is really no objective evidence for an intraparenchymal brain lesion in the brainstem, cerebellum or subcortical white matter, either by exam or by anything on MRI that I am convinced is significant. He has had 2 MRI studies, MRAs, duplex studies and spinal imaging, all of which shows at most a few highly nonspecific, small punctate, high T2 intensity lesions and some cervical discogenic disease. Laboratory studies were unremarkable bu Dr Plaza astutely noted some macrocytosis on his hemogram and ordered B12 and folate levels, both of which are actually low. The patient claims to have a normal diet. He is not a consumer of ethanol. There is no family history for autoimmune diseases and he really has no symptoms that would correlate with this type of vitamin deficiency, but the cause is not established at this point. I was going to repeat the 2 levels, just to be certain it is not a laboratory error but he has already received b12 intramuscularly today so a I am going to order homocysteine, methylmalonic acid, antiparietal cell antibodies along with some general autoimmune studies and I think the hospitalist medicine groupvcould begin to work this up beyond that if they feel this is necessary. He will need to have a primary care physician in the future and I think the family is going to ask Dr. Sang Garcia of the [facility] in [place] to assume his care from Dr. Sky in [place]. From a neurologic point of view, I would begin tapering his steroids to 40 mg a day for the next 2 days, then 20 mg a day for 2 days, then 10 mg a day for 2 days and finally stop them. I will continue the meclizine round the clock at 25 t.i.d. I would be happy to look at him in my office in about 3-4 weeks but in the interim, I really think he needs to have ear, nose and throat look at him, do an ENG and other assessments to try to establish the diagnosis of what I think is a primary vestibulopathy. I do not think this is early Meniere disease as he really does not talk about tinnitus, hearing loss or fullness, but again we do not have audiology assessments or any other evaluations to eliminate this possibility. The possibility of a first migrainous event with protractee vertigo remains as well but the treatment would not change if this were the case. Dr. Rai will be around and I will aske her to make one more visit to his bedside tomorrow but after that point, I think he probably would be able to be discharged with followup as outlined above. MTDJame
[2016-10-27] VITALS (8 sets, daily range): BP systolic 128–196; BP diastolic 77–144; PULSE 63–128; TEMP 36.5–37.1; O2SAT 95–98
[2016-10-27] MEDS: MECLIZINE HCL 25 MG TAB PO SCH ×3 (06:21→16:40)
[2016-10-27] MEDS: TRAMADOL HCL 50 MG TAB PO PRN (07:53)
[2016-10-27] MEDS: FoLIC ACID INJ 1 MG in SYRINGE 9.8 ML IV SCH (07:54)
[2016-10-27] MEDS: CYANOCOBALAMIN 1000 MCG/ML VIAL IM SCH (07:55)
[2016-10-27] MEDS: CEROVITE ADV FORMULA TAB PO SCH (07:56)
[2016-10-27] MEDS ORDERED: THIAMINE HCL INJ 100 MG in SYRINGE 9 ML IV SCH (08:00)
--- NOTE | 2016-10-27 14:39 | Progress Note ---
Internal Med Progress Note Date of Service: Oct 27, 2016. Provider Documentation: SUBJECTIVE: still somewhat dizzy and wobbly on ambulation eating ok no sob or cough afebrile OBJECTIVE: Vital Signs-as noted below Exam: General-alert and oriented. Not in distress ENT-normal hearing Neck-no neck masses Lungs-cta b/l no wheezing or crackles Heart-s1 and s2 heard regular rate and rhythm, no murmurs Abdomen-soft bowel sounds present non tender no distension Extremities no edema no erythema Neuro-alert and oriented, non focal moves extremities Lab data as noted below. ASSESSMENT & PLAN: VERTIGO / ATAXIA / Etiology ?. No benefit from meclizine, Had Erinn-Hallpike testing which was negative on right, positive on left. Boni maneuver was performed without significant benefit. To continue PT. Initially CT head demonstrated dilatation of temporal horns of the lateral ventricles, raising possibility of hydrocephalus.and then MRI brain done which demonstrated numerous small foci of T2 signal abnormality scattered throughout the subcortical and periventricular white matter felt to be nonspecific findings possibly representing small vessel ischemic changes or a demyelinating process. Neurology consulted. EEG was done which was essentially normal. LP performed which was unremarkable. Awaiting Lyme PCR, West Nile AB, VDRL, MS screen pending. repeat mri/mra head unremarkable started on prednisone for possible migraines per neurology vitamin b12 and folate levels low but not related to ongoing symptoms as per neurology to taper steroids and monitor to f/u rheumatology workup- RF negative. Await meagan studies Vitamin deficiencies replacing needs close followup with pcp. VTE PROPHYLAXIS SCD's. DISPOSITION to be determined possible d/c in am if stable Vital Signs: Date Time Temp Pulse Resp B/P (MAP) Pulse Ox O2 Delivery O2 Flow Rate FiO2 10/27/16 08:00 36.6 66 16 144/88 (106) 98 Room Air 10/27/16 08:00 Room Air 10/27/16 00:05 37.1 69 20 158/95 (116) 97 Room Air 10/26/16 23:59 Room Air 10/26/16 20:00 Room Air 10/26/16 16:14 36.9 107 20 150/99 (116) 96 Room Air 10/26/16 16:00 Room Air Lab Results: Results Past 24 Hours Test 10/26/16 15:17 Range/Units Erythrocyte Sedimentation Rate 2 0-14 mm/hr Rheumatoid Factor < 10.0 0-15 U/mL
[2016-10-27] MEDS ORDERED: METOPROLOL TARTRATE 1 MG/ML VIAL IV PRN (19:00)
--- NOTE | 2016-10-27 19:04 | Progress Note ---
Internal Med Progress Note Date of Service: Oct 27, 2016. Provider Documentation: sonia complained of palpitations after walking short distance. Found to be tachycardiac and hypertensive. Ekg shows sinus tachycardia with pvc's and fusion complexes. Will transfer to tele. Serial CE and echo. Hold iv thiamine and prednisone. iv Lopressor prn Vital Signs: Date Time Temp Pulse Resp B/P (MAP) Pulse Ox O2 Delivery O2 Flow Rate FiO2 10/27/16 18:25 128 196/144 (161) 128 178/120 (139) 10/27/16 16:00 Room Air 10/27/16 15:39 36.5 89 20 148/99 (115) 95 Room Air 10/27/16 08:00 36.6 66 16 144/88 (106) 98 Room Air 10/27/16 08:00 Room Air 10/27/16 00:05 37.1 69 20 158/95 (116) 97 Room Air 10/26/16 23:59 Room Air 10/26/16 20:00 Room Air Lab Results: Results Past 24 Hours Test 10/27/16 18:57 Range/Units
--- NOTE | 2016-10-27 22:46 | PROGRESS NOTE ---
DATE: 10/27/2016 SUBJECTIVE: Seeing Mr. Chavez in followup, Dr. Rios has been following him for vertigo without any clear central etiology. He has had an extensive workup including 2 MRIs of brain, MRA head and neck, lumbar puncture, he has had a mildly low B12 and has been started on B12. He indicates his headache is mildly improved, but that he still has a sense of being off balance. PHYSICAL EXAMINATION: Neurological: He is awake and alert. Normal speech and language, appearing mildly anxious. There is normal extraocular motility, facial symmetry. Motor: There is normal ovllri-my-toir and yhfl-hw-hsmx. No dysdiadochokinesia. His gait is unremarkable with a walker. He has a positive Romberg. IMPRESSION: Likely noncentral etiology for dizziness. PLAN: Continue vitamin B12 supplementation upon discharge in an effort to be able to return the patient to work, I would recommend vestibular therapy with physical therapy. Ultimately, he may need to be sent to balance clinic at [facility]. He should see Dr. Casiano in follow up post-discharge, but would not be able to return to work until dizziness resolves MTDD
[2016-10-28] VITALS (8 sets, daily range): BP systolic 133–155; BP diastolic 82–108; PULSE 59–94; TEMP 36.4–36.8; O2SAT 96–98
[2016-10-28] MEDS: MECLIZINE HCL 25 MG TAB PO SCH (06:35)
[2016-10-28 07:44] LABS: BASO % 0.1 %; BASO ABS # 0.01 K/uL (0-0.2); COMPLETE YES; EOS % 0.4 %; IG% 0.2 %; LYMPH % 19.7 %; LYMPH ABS # 2.51 K/uL (1.2-3.4); MEAN CELL VOLUME 84.5 fL (80-100); MEAN CORPUSCULAR HEMOGLOBIN 27.6 pg (25-34); MEAN CORPUSCULAR HGB CONC 32.7 g/dl (32-36); MEAN PLATELET VOLUME 10.3 fL (7.4-10.4); MONO % 6.3 %; NEUT % 73.3 %; PLATELET COUNT 210 K/uL (130-400); RED BLOOD COUNT 5.21 M/uL (4.7-6.1); WHITE BLOOD COUNT 12.77 K/uL (4.8-10.8)
[2016-10-28 07:45] LABS: BUN/CREATININE RATIO 12.7 (10-20); CREATININE 0.96 mg/dl (0.60-1.40); MAGNESIUM 2.3 mg/dl (1.8-2.4); POTASSIUM 3.1 mmol/L (3.5-5.1)
[2016-10-28] MEDS: CEROVITE ADV FORMULA TAB PO SCH (07:45)
[2016-10-28] MEDS: CYANOCOBALAMIN 1000 MCG/ML VIAL IM SCH (07:46)
[2016-10-28] MEDS ORDERED: POTASSIUM CHLORIDE 20 MEQ TABCR PO STA (08:37)
[2016-10-28] MEDS ORDERED: POTASSIUM CHLR 20 MEQ / WTR 10 MEQ in PREMIXED WATER 100 ML IV SCH (08:44)
--- NOTE | 2016-10-28 09:05 | ECHOCARDIOGRAM REPORT ---
*NOTICE TO RECEIVING LIBERTARIAN AGENCY This information is strictly Confidential and protected under [place] law. [place] law prohibits you from making any further disclosure of this information unless further disclosure is expressly permitted by the written consent of the person to whom it pertains or is authorized by law. A general authorization for the release of medical or other information is not sufficient for this purpose. Hospital accepts no responsibility if the information is made available to any other person, INCLUDING THE PATIENT. Interpretation Summary * Name: CORY LANDON Study Date: 10/28/2016 07:07 AM BP: 134/82 mmHg * Patient Location: C.2T\S\S241\S\1 HR: 59 * : 1975 (M/d/yyyy) Gender: Male Height: 73 in * Age: 41 yrs Ethnicity: CA Weight: 199 lb * Ordering Physician: Isaias Plaza * Referring Physician: Self, Referred * Performed By: Sue Dior RDCS * * Reason For Study: PALPITATIONS * BSA: 2.1 m2 * Normal transthoracic echocardiogram. Procedure Details * A complete two-dimensional transthoracic echocardiogram was performed (2D, M-mode, Doppler and color flow Doppler). Left Ventricle * The left ventricle is normal in size. * There is mild concentric left ventricular hypertrophy. * Ejection Fraction = 60-65%. * Left ventricular systolic function is normal. * The left ventricular wall motion is normal. Right Ventricle * The right ventricle is normal in size and function. Atria * The left atrial size is normal. * Right atrial size is normal. * No ASD detected; PFO is not assessed. Mitral Valve * The mitral valve anatomy is normal. * There is no mitral valve stenosis. * There is trace mitral regurgitation. Tricuspid Valve * The tricuspid valve anatomy is normal. * There is no tricuspid stenosis. * There is trace tricuspid regurgitation. Aortic Valve * The aortic valve is trileaflet. * No hemodynamically significant valvular aortic stenosis. * No aortic regurgitation is present. Pulmonic Valve * The pulmonic valve is not well visualized. Great Vessels * The aortic root is normal size. Pericardium/Pleural * There is no pericardial effusion. Great Vessels * Normal inferior vena cava diameter and respiratory variation suggests normal central venous pressure. MMode 2D Measurements and Calculations IVSd 1.2 cm IVSs 1.7 cm LVIDd 4.4 cm LVIDs 3.0 cm LVPWd 1.3 cm LVPWs 1.7 cm IVS/LVPW 0.87 FS 32.4 % EDV(Teich) 89.3 ml ESV(Teich) 34.9 ml EF(Teich) 60.9 % EDV(cubed) 87.1 ml ESV(cubed) 26.9 ml EF(cubed) 69.1 % % IVS thick 45.4 % % LVPW thick 31.9 % LV mass(C)d 202.7 grams LV mass(C)dI 94.4 grams/m\S\2 LV mass(C)s 198.4 grams LV mass(C)sI 92.4 grams/m\S\2 SV(Teich) 54.4 ml SI(Teich) 25.3 ml/m\S\2 SV(cubed) 60.2 ml SI(cubed) 28.0 ml/m\S\2 Ao root diam 3.3 cm Ao root area 8.7 cm\S\2 LA dimension 3.9 cm LA/Ao 1.2 LVAd ap4 35.8 cm\S\2 LVLd ap4 9.0 cm EDV(MOD-sp4) 115.2 ml EDV(sp4-el) 120.5 ml LVAs ap4 19.9 cm\S\2 LVLs ap4 7.6 cm ESV(MOD-sp4) 48.3 ml ESV(sp4-el) 44.3 ml EF(MOD-sp4) 58.0 % EF(sp4-el) 63.3 % LVAd ap2 33.4 cm\S\2 LVLd ap2 9.5 cm EDV(MOD-sp2) 101.7 ml EDV(sp2-el) 100.0 ml LVAs ap2 19.5 cm\S\2 LVLs ap2 8.0 cm ESV(MOD-sp2) 41.7 ml ESV(sp2-el) 40.2 ml EF(MOD-sp2) 58.9 % EF(sp2-el) 59.8 % LVLd %diff 4.8 % EDV(MOD-bp) 110.4 ml LVLs %diff 5.1 % ESV(MOD-bp) 46.0 ml EF(MOD-bp) 58.3 % SV(MOD-sp4) 66.8 ml SI(MOD-sp4) 31.1 ml/m\S\2 SV(MOD-sp2) 59.9 ml SI(MOD-sp2) 27.9 ml/m\S\2 SV(MOD-bp) 64.4 ml SI(MOD-bp) 30.0 ml/m\S\2 SV(sp4-el) 76.2 ml SI(sp4-el) 35.5 ml/m\S\2 SV(sp2-el) 59.7 ml SI(sp2-el) 27.8 ml/m\S\2 Doppler Measurements and Calculations MV E max sophie 57.7 cm/sec MV A max sophie 42.2 cm/sec MV E/A 1.4 MV dec time 0.27 sec Ao V2 max 129.0 cm/sec Ao max PG 6.7 mmHg Ao max PG (full) 3.8 mmHg LV V1 max PG 2.8 mmHg LV V1 max 84.4 cm/sec TR max sophie 198.4 cm/sec
[2016-10-28] MEDS: POTASSIUM CHLR 10MEQ / WTR IV SCH ×2 (09:18→11:47)
[2016-10-28] MEDS: THIAMINE HCL 50 MG TAB PO SCH (09:19)
[2016-10-28] MEDS ORDERED: MECLIZINE HCL 25 MG TAB PO PRN (11:00)
--- NOTE | 2016-10-28 11:12 | Progress Note ---
Internal Med Progress Note Date of Service: Oct 28, 2016. Provider Documentation: SUBJECTIVE: still somewhat dizzy and wobbly on ambulation no more palpitations no chest pain or arm pain afebrile no sob no other complaints OBJECTIVE: Vital Signs-as noted below Exam: General-alert and oriented. Not in distress ENT-normal hearing Neck-no neck masses Lungs-cta b/l no wheezing or crackles Heart-s1 and s2 heard regular rate and rhythm, no murmurs Abdomen-soft bowel sounds present non tender no distension Extremities no edema no erythema Neuro-alert and oriented, non focal moves extremities Lab data as noted below. ASSESSMENT & PLAN: ASSESSMENT & PLAN: VERTIGO / ATAXIA / Etiology ?. No benefit from meclizine, Had [place]-Hallpike testing which was negative on right, positive on left. Boni maneuver was performed without significant benefit. To continue PT. Initially CT head demonstrated dilatation of temporal horns of the lateral ventricles, raising possibility of hydrocephalus.and then MRI brain done which demonstrated numerous small foci of T2 signal abnormality scattered throughout the subcortical and periventricular white matter felt to be nonspecific findings possibly representing small vessel ischemic changes or a demyelinating process. Neurology consulted. EEG was done which was essentially normal. LP performed which was unremarkable. Awaiting Lyme PCR, West Nile AB, VDRL, MS screen pending. repeat mri/mra head unremarkable started on prednisone for possible migraines per neurology vitamin b12 and folate levels low but not related to ongoing symptoms as per neurology to taper steroids and monitor to f/u rheumatology workup- RF negative. Await meagan studies f/u with neurology as out patinet and may be balance clinic at [facility] Tachycardia sinus tachycardia with pvc's and fusion complexes yesterday no chest pain ce negative await echo improved today stopped prednisone will monitor in tele Vitamin deficiencies replacing needs close followup with pcp. VTE PROPHYLAXIS SCD's. DISPOSITION continue pt/ot possible d/c in am if stable Vital Signs: Date Time Temp Pulse Resp B/P (MAP) Pulse Ox O2 Delivery O2 Flow Rate FiO2 10/28/16 10:40 36.5 65 16 155/91 (112) 98 Room Air 10/28/16 08:00 Room Air 10/28/16 07:00 36.4 59 16 134/82 (99) 98 Room Air 10/28/16 04:16 36.4 73 18 133/86 (102) 97 Room Air 80 150/95 (113) 94 145/108 (120) 10/28/16 04:00 97 Room Air 10/28/16 00:01 96 Room Air 10/27/16 23:51 36.9 63 18 128/77 (94) 96 Room Air 10/27/16 20:50 70 18 134/83 (100) 154/87 (109) 10/27/16 20:00 95 Room Air 10/27/16 19:55 37.0 96 18 163/107 (125) 95 Room Air 152/94 (113) 10/27/16 18:25 128 196/144 (161) 128 178/120 (139) 10/27/16 16:00 Room Air 10/27/16 15:39 36.5 89 20 148/99 (115) 95 Room Air Lab Results: Results Past 24 Hours Test 10/27/16 18:57 10/28/16 00:51 10/28/16 06:23 Range/Units Troponin I < 0.015 < 0.015 < 0.015 0-0.045 ng/ml White Blood Count 12.77 4.8-10.8 K/uL Red Blood Count 5.21 4.7-6.1 M/uL Hemoglobin 14.4 14.0-18.0 g/dL Hematocrit 44.0 42-52 % Mean Corpuscular Volume 84.5 80-100 fL Mean Corpuscular Hemoglobin 27.6 25-34 pg Mean Corpuscular Hemoglobin Concent 32.7 32-36 g/dl Platelet Count 210 130-400 K/uL Mean Platelet Volume 10.3 7.4-10.4 fL Neutrophils (%) (Auto) 73.3 % Lymphocytes (%) (Auto) 19.7 % Monocytes (%) (Auto) 6.3 % Eosinophils (%) (Auto) 0.4 % Basophils (%) (Auto) 0.1 % Neutrophils # (Auto) 9.36 1.4-6.5 K/uL Lymphocytes # (Auto) 2.51 1.2-3.4 K/uL Monocytes # (Auto) 0.81 0.11-0.59 K/uL Eosinophils # (Auto) 0.05 0-0.5 K/uL Basophils # (Auto) 0.01 0-0.2 K/uL RDW Standard Deviation 38.0 36.4-46.3 fL RDW Coefficient of Variation 12.5 11.5-14.5 % Immature Granulocyte % (Auto) 0.2 % Immature Granulocyte # (Auto) 0.03 0.00-0.02 K/uL Sodium Level 142 136-145 mmol/L Potassium Level 3.1 3.5-5.1 mmol/L Chloride Level 104 98-107 mmol/L Carbon Dioxide Level 30 21-32 mmol/L Anion Gap 8.0 3-11 mmol/L Blood Urea Nitrogen 12 7-18 mg/dl Creatinine 0.96 0.60-1.40 mg/dl Est Creatinine Clear Calc Drug Dose 116.7 ml/min Estimated GFR () 114.9 Estimated GFR (Non- 99.2 BUN/Creatinine Ratio 12.7 10-20 Random Glucose 91 70-99 mg/dl Calcium Level 9.0 8.5-10.1 mg/dl Magnesium Level 2.3 1.8-2.4 mg/dl Total Bilirubin 0.6 0.2-1 mg/dl Aspartate Amino Transf (AST/SGOT) 8 15-37 U/L Alanine Aminotransferase (ALT/SGPT) 19 12-78 U/L Alkaline Phosphatase 85 45-117 U/L Total Protein 6.3 6.4-8.2 gm/dl Albumin 3.2 3.4-5.0 gm/dl Globulin 3.1 2.5-4.0 gm/dl Albumin/Globulin Ratio 1.0 0.9-2
--- NOTE | 2016-10-28 17:37 | PROGRESS NOTE ---
DATE: 10/28/2016 SUBJECTIVE: I am seeing Mr. Chavez in followup of dizziness with negative central workup. He continues to complain of nonspecific dizziness. He has been moved to telemetry because of some tachycardia. PHYSICAL EXAMINATION: He is awake and alert. His affect is mildly flat. There is no nystagmus. Normal facial symmetry. Speech and language are normal. Hfxwlq-cb-[id number] and eocp-rn-qdju are normal. No dysdiadochokinesia. His gait with the assistance of one was normal. His Romberg is mildly positive. IMPRESSION: I suspect a peripheral labyrinthopathy. PLAN UPON DISCHARGE: Refer the patient to vestibular therapy with physical therapy and to vestibular clinic at [facility]. The patient will not be able to return to work until he is free from dizziness and instability. I agree with supplementation of B12, although that will generally not give him vertigo. The patient should be scheduled to see Dr. Casiano as an outpatient. ZOE
[2016-10-29] VITALS (10 sets, daily range): BP systolic 128–153; BP diastolic 79–96; PULSE 64–88; TEMP 36.4–37.6; O2SAT 96–98
[2016-10-29 05:37] LABS: ALBUMIN 4.7 g/dL (3.7-5.1); IGG CSF 1.6 mg/dL (0.8-7.7); IGG SERUM 990 mg/dL (694-1618); LYME DNA PCR CSF OR SYNOVIAL Not detected (Not Detected); LYME DNA SOURCE CSF; MYELIN BASIC PROTEIN 663 <2.0 mcg/L (0.0-4.0)
[2016-10-29] MEDS: CYANOCOBALAMIN 1000 MCG/ML VIAL IM SCH (07:51)
[2016-10-29] MEDS: THIAMINE HCL 50 MG TAB PO SCH (07:52)
[2016-10-29] MEDS: CEROVITE ADV FORMULA TAB PO SCH (07:52)
[2016-10-29 08:52] LABS: METHYLMALONIC ACID 275 NMOL/L (87-318)
[2016-10-29 10:56] LABS: BUN/CREATININE RATIO 13.9 (10-20); CALCIUM 9.1 mg/dl (8.5-10.1); MAGNESIUM 2.3 mg/dl (1.8-2.4); POTASSIUM 3.5 mmol/L (3.5-5.1)
[2016-10-29] MEDS ORDERED: ANT25 PO (13:22)
[2016-10-29] MEDS ORDERED: CYAN100020 PO (13:22)
[2016-10-29] MEDS ORDERED: CNT PO (13:22)
[2016-10-29] MEDS ORDERED: THM50 PO (13:22)
[2016-10-29] MEDS ORDERED: FLV1 PO (13:22)
--- NOTE | 2016-10-29 13:28 | Discharge Instructions ---
Discharge Instructions Date of Service Oct 29, 2016. Admission Reason for Admission: Abnormal Gait, Vertigo Discharge Discharge Diagnosis / Problem: abnomal gait, vertigo Discharge Goals Goal(s): Decrease discomfort, Improve function Activity Recommendations Activity Limitations: resume your previous activity (as tolerated) . Instructions / Follow-Up Instructions / Follow-Up FOLLOWUP WITH FAMILY DOCTOR IN ONE WEEK FOLLOWUP WITH NEUROLOGY OR LEONILA IN 2-3 WEEKS REFERRAL TO vestibular clinic at [facility] PER NEUROLOGY. VITAMIN B12 DEFICIENCY AND FOLATE DEFICIENCY FOLLOWUP WITH FAMILY DOCTOR. TO TAKE FOLIC ACID AND THIAMINE SUPPLEMENT FOR ONE MONTH AND THEN STOP. CAN CONTINUE MULTIVITAMIN AND VITAMIN B12 SUPPLEMENTS PER FAMILY DOCTOR. STARTING NEW MEDICATION: TOPROL XL 12.5 MG(METOPROLOL SUCCINATE) TAB ONCE DAILY FOR HIGH BLOOD PRESSURE (AND MILD TACHYCARDIA). CLOSE FOLLOWUP WITH FAMILY DOCTOR. Current Hospital Diet Patient's current hospital diet: Regular Diet Discharge Diet Recommended Diet: Regular Diet, AHA Diet (Heart Healthy) Pending Studies Studies pending at discharge: no Work Instructions Return To Work: after follow-up Additional Instructions: NO WORK UNTIL SEEN BY NEUROLOGY. [facility] Medical Emergencies . Who to Call and When: Medical Emergencies: If at any time you feel your situation is an emergency, please call 911 immediately. . Non-Emergent Contact Non-Emergency issues call your: Primary Care Provider . . "Provider Documentation" section prepared by Isaias Plaza. . VTE Core Measure Inpt VTE Proph given/why not?: SCD's
[2016-10-29] MEDS ORDERED: METO1TAB31 PO (13:32)
[2016-10-29] MEDS ORDERED: POTASSIUM CHLORIDE 10 MEQ TABCR PO STA (13:37)
[2016-10-29] MEDS ORDERED: ERGO500037 PO (13:38)
[2016-10-29] MEDS ORDERED: METOPROLOL SUCC 25MG EXT REL TAB PO STA (13:42)
--- NOTE | 2016-10-29 18:17 | Progress Note ---
Internal Med Progress Note Date of Service: Oct 29, 2016. Provider Documentation: SUBJECTIVE: still dizzy and wobbly on ambulation no chest pain or sob eating ok no nausea ok for discharge and f/u as out patient OBJECTIVE: Vital Signs-as noted below Exam: General-alert and oriented. Not in distress ENT-normal hearing Neck-no neck masses Lungs-cta b/l no wheezing or crackles Heart-s1 and s2 heard regular rate and rhythm, no murmurs Abdomen-soft bowel sounds present non tender no distension Extremities no edema no erythema Neuro-alert and oriented, non focal moves extremities Lab data as noted below. ASSESSMENT & PLAN: ASSESSMENT & PLAN: VERTIGO / ATAXIA / Etiology ?. No benefit from meclizine, Had Erinn-Hallpike testing which was negative on right, positive on left. Boni maneuver was performed without significant benefit. To continue PT. Initially CT head demonstrated dilatation of temporal horns of the lateral ventricles, raising possibility of hydrocephalus.and then MRI brain done which demonstrated numerous small foci of T2 signal abnormality scattered throughout the subcortical and periventricular white matter felt to be nonspecific findings possibly representing small vessel ischemic changes or a demyelinating process. Neurology consulted. EEG was done which was essentially normal. LP performed which was unremarkable. Awaiting Lyme PCR, West Nile AB, VDRL, MS screen pending. repeat mri/mra head unremarkable started on prednisone for possible migraines per neurology vitamin b12 and folate levels low but not related to ongoing symptoms as per neurology to taper steroids and monitor to f/u rheumatology workup- RF negative. Missy negative f/u with neurology as out patinet and may be balance clinic at [facility] meclizine prn Tachycardia sinus tachycardia with pvc's and fusion complexes yesterday no chest pain ce negative improved stopped prednisone echo-mild LVH otherwise unremarkable discharged on low dose toprol xl f/u with pcp HTN mild LVH on echo started on toprol xl f/u with pcp Vitamin deficiencies replacing vitamin b12 low folate low homocysteine levels mildly elevated but methylmalonic acid levels normal vitamin D 16 f/u with pcp Discharged home Vital Signs: Date Time Temp Pulse Resp B/P (MAP) Pulse Ox O2 Delivery O2 Flow Rate FiO2 10/29/16 15:30 37.6 81 18 134/84 (101) 96 Room Air 10/29/16 14:12 36.7 73 18 97 Room Air 8/30/17 12:07 Room Air 10/29/16 10:51 36.7 73 18 153/88 (109) 97 Room Air 10/29/16 08:00 Room Air 10/29/16 07:23 88 128/87 (101) 97 Room Air 10/29/16 07:21 71 129/88 (102) 97 Room Air 10/29/16 07:19 36.7 64 18 134/79 (97) 96 Room Air 10/29/16 04:37 36.4 64 16 131/86 (101) 98 Room Air 10/29/16 04:00 98 Room Air 10/29/16 00:12 36.6 67 18 144/83 (103) 96 Room Air 73 137/90 (106) 80 135/96 (109) 10/29/16 00:01 96 Room Air 10/28/16 20:00 96 Room Air 10/28/16 19:14 36.8 78 18 139/84 (102) 96 Room Air Lab Results: Results Past 24 Hours Test 10/29/16 10:12 Range/Units Sodium Level 141 136-145 mmol/L Potassium Level 3.5 3.5-5.1 mmol/L Chloride Level 104 98-107 mmol/L Carbon Dioxide Level 37 21-32 mmol/L Anion Gap 0.0 3-11 mmol/L Blood Urea Nitrogen 14 7-18 mg/dl Creatinine 1.00 0.60-1.40 mg/dl Est Creatinine Clear Calc Drug Dose 112.1 ml/min Estimated GFR () 109.4 Estimated GFR (Non- 94.4 BUN/Creatinine Ratio 13.9 10-20 Random Glucose 92 70-99 mg/dl Calcium Level 9.1 8.5-10.1 mg/dl Magnesium Level 2.3 1.8-2.4 mg/dl
--- NOTE | 2016-10-29 18:40 | Discharge Summary ---
Discharge Summary Date of Service Oct 29, 2016. Discharge Summary Admission Date: Oct 28, 2016 at 11:35 Discharge Date: Oct 29, 2016 Discharge Disposition: Home Principal Diagnosis: ABNORMAL GAIT VERTIGO TACHYCARDIA Procedures: CT head MRI brain PT . Consultations: Neurology . Medication Reconciliation New Medications: Cyanocobalamin (Vitamin B12) 1,000 Mcg Tab 1000 MCG PO DAILY, #30 2 Refills Ergocalciferol (Vitamin D 82104 Unit) 50,000 Unit Cap 1 CAP PO WK for 28 Days, #4 CAP Metoprolol Succinate (Toprol Xl) 25 Mg Tab 12.5 MG PO DAILY, #30 TAB 1 Refill Folic Acid (Folic Acid) 1 Mg Tab 1 MG PO QAM, #30 TAB Meclizine HCl (Meclizine HCl) 25 Mg Tab 25 MG PO TID PRN for Dizziness or Vertigo, #30 TAB 1 Refill Multivitamins/Minerals (Certavite/Antioxidants) 1 Tab Tab 1 TAB PO QAM, #30 TAB 2 Refills Thiamine HCl (Vitamin B-1) 50 Mg Tab 50 MG PO QAM, #30 TAB Admission Information HPI (per Admitting provider): Patient is a 41yo man with no known PMH who presents with dizziness over the past two days. Dizziness is intermittent and is described as the room spinning with lightheadedness. States that dizziness is made worse with positional changes and after eating. Patient has experienced dizziness similar to this in the past but for only 1-2 hours at a time before resolving on its own. Associated symptoms include unsteady ambulation, with swaying from side to side. Patient can walk on his own but has to hold onto something for stability. Also endorses a dull headache on the back R side and generalized fatigue. Denies fever, chills, neck stiffness, confusion, LOC, decreased visual acuity, CP, SOB, nausea, vomiting, abdominal pain, weakness of lower extremities or a new rash. Does not have a PCP. States that his insurance stopped covering his previous PCP and he is looking for a new one. Denies a history of stroke, head injury, seizure, heart arrhythmia, Lyme disease. Denies tobacco, alcohol or illicit drug use. Physical Exam (per Admitting): General Appearance: WD/WN, no apparent distress Head: normocephalic, atraumatic Eyes: normal inspection, PERRL, EOMI (no nystagmus ), sclerae normal ENT: hearing grossly normal Neck: supple, no adenopathy, trachea midline Respiratory/Chest: chest non-tender, lungs clear, normal breath sounds, no respiratory distress, no accessory muscle use Cardiovascular: regular rate, rhythm, no edema, no murmur, normal peripheral pulses Abdomen/GI: normal bowel sounds, non tender, soft, no organomegaly Back: normal inspection, no CVA tenderness Extremities/Musculoskelatal: normal inspection, no calf tenderness, normal capillary refill, no pedal edema Neurologic/Psych: wood filler II-XII nml as tested, no motor/sensory deficits, alert , normal mood/affect, oriented x 3, + abnormal gait (Ataxic with swaying side to side. + Romberg test) Skin: normal color, warm/dry, no rash Hospital Course ASSESSMENT & PLAN: VERTIGO / ATAXIA / Etiology ?. No benefit from meclizine, Had Turner-Hallpike testing which was negative on right, positive on left. Boni maneuver was performed without significant benefit. To continue PT. Initially CT head demonstrated dilatation of temporal horns of the lateral ventricles, raising possibility of hydrocephalus.and then MRI brain done which demonstrated numerous small foci of T2 signal abnormality scattered throughout the subcortical and periventricular white matter felt to be nonspecific findings possibly representing small vessel ischemic changes or a demyelinating process. Neurology consulted. EEG was done which was essentially normal. LP performed which was unremarkable. Awaiting Lyme PCR, West Nile AB, VDRL, MS screen pending. repeat mri/mra head unremarkable started on prednisone for possible migraines per neurology vitamin b12 and folate levels low but not related to ongoing symptoms as per neurology to taper steroids and monitor to f/u rheumatology workup- RF negative. Missy negative f/u with neurology as out patinet and may be balance clinic at [facility] meclizine prn Tachycardia sinus tachycardia with pvc's and fusion complexes yesterday no chest pain ce negative improved stopped prednisone echo-mild LVH otherwise unremarkable discharged on low dose toprol xl f/u with pcp HTN mild LVH on echo started on toprol xl f/u with pcp Vitamin deficiencies replacing vitamin b12 low folate low homocysteine levels mildly elevated but methylmalonic acid levels normal vitamin D 16 f/u with pcp Discharged home Total time spent on discharge = 35MINUTES This includes examination of the patient, discharge planning, medication reconciliation, and communication with other providers. Discharge Instructions Discharge Instructions Date of Service Oct 29, 2016. Admission Reason for Admission: Abnormal Gait, Vertigo Discharge Discharge Diagnosis / Problem: abnomal gait, vertigo Discharge Goals Goal(s): Decrease discomfort, Improve function Activity Recommendations Activity Limitations: resume your previous activity (as tolerated) . Instructions / Follow-Up Instructions / Follow-Up FOLLOWUP WITH FAMILY DOCTOR IN ONE WEEK FOLLOWUP WITH NEUROLOGY OR [place]ON[place]A IN 2-3 WEEKS REFERRAL TO vestibular clinic at [facility] PER NEUROLOGY. VITAMIN B12 DEFICIENCY AND FOLATE DEFICIENCY FOLLOWUP WITH FAMILY DOCTOR. TO TAKE FOLIC ACID AND THIAMINE SUPPLEMENT FOR ONE MONTH AND THEN STOP. CAN CONTINUE MULTIVITAMIN AND VITAMIN B12 SUPPLEMENTS PER FAMILY DOCTOR. STARTING NEW MEDICATION: TOPROL XL 12.5 MG(METOPROLOL SUCCINATE) TAB ONCE DAILY FOR HIGH BLOOD PRESSURE (AND MILD TACHYCARDIA). CLOSE FOLLOWUP WITH FAMILY DOCTOR. Current Hospital Diet Patient's current hospital diet: Regular Diet Discharge Diet Recommended Diet: Regular Diet, AHA Diet (Heart Healthy) Pending Studies Studies pending at discharge: no Work Instructions Return To Work: after follow-up Additional Instructions: NO WORK UNTIL SEEN BY NEUROLOGY. [facility] Medical Emergencies . Who to Call and When: Medical Emergencies: If at any time you feel your situation is an emergency, please call 911 immediately. . Non-Emergent Contact Non-Emergency issues call your: Primary Care Provider . . "Provider Documentation" section prepared by Isaias Plaza. .
== END 2016-10-29 17:00 | disposition home or self-care (01) | DRG 93 ==
LOC: C.EDB 13:16 → C.4E 19:27 → ENRESERV 19:45 → C.2T 10-27 19:59 → OBSVTOIN 10-28 11:35
PROVIDERS: ADMIT Hospitalist; ATTEND Internal Medicine
PROC: B01BZZZ Fluoroscopy of Spinal Cord (ICD-10-PCS; principal; 2016-10-23)
PROC: 009U3ZX Drainage of Spinal Canal, Percutaneous Approach, Diagnostic (ICD-10-PCS; principal; 2016-10-23)
DX: R26.0 Ataxic gait (principal); R42 Dizziness and giddiness; R51 Headache; R90.89 Other abnormal findings on diagnostic imaging of central nervous system; E53.8 Deficiency of other specified B group vitamins; R00.0 Tachycardia, unspecified; I49.3 Ventricular premature depolarization; I10 Essential (primary) hypertension

== ENCOUNTER → 2016-12-21 | Outpatient (CLI) | payer BC ==
[~2016-12-21] MED LIST: ANT25 PO; CNT PO; CYAN100020 PO; ERGO500037 PO; FLV1 PO; METO-478 PO; THM50 PO
[2016-12-21 10:36] LABS: CHOLESTEROL/HDL RATIO 3.8
== END | disposition home or self-care (01) ==
LOC: C.LAB 09:35
PROVIDERS: ATTEND Internal Medicine
DX: Z13.6 Encounter for screening for cardiovascular disorders (principal); E53.8 Deficiency of other specified B group vitamins; E55.9 Vitamin D deficiency, unspecified

== ENCOUNTER → 2017-05-24 | Outpatient (CLI) | payer OTHER ==
--- NOTE | 2017-05-25 05:39 | PAP/PSG TECHNICIAN REPORT ---
[facility] Hop Grower Polysomnogram Report Study name: None Report date: 05/25/2017 Study date: 05/24/2017 Referring Physician: LEAH LOUISE PA-C Name: CORY LANDON Interpreting Physician: John Vázquez M.D. Date of : 1975 Hop Grower: LUCAS Shea. Sex: Male Age: 41 StudyType: PSG Weight: 227 lbs Height: 41 years, Height 6' 2" Neck Circum:15.25in. BMI: 29.14 Medications: Meclizine HCl 25mg, Multivitamin, Propranolol HCl ER 60mg Patient History Study started on room air with no ETCO2 monitoring in room #6. 41 yr old male here tonight for a diagnostic psg. In September of last year he started having tremors and muscle weakness. He also had dizziness and headaches. He has had several tests done but still not sure what is causing his symptoms. His reported that she recently heard him gasping for air in his sleep. She stated that he does not snore. He is a side sleeper. He has tremors in his sleep and when awake. The medication is not really helping his tremors, according to his . His ESS=15/21. His neck circ=15.25inches. Parameters Monitored NPSG: E1-M2, E2-M1, Fp1-M2, Fp2-M1, F3-M2, F4-M2, F4-M1, C3-M2, C4-M2, C4-M1, O1-M2, O2-M2, O2-M1, T3-M2, T4-M1, P3-M2, P4-M1, CHIN1, CHIN2, HR, EKG, Legs, PFLOW, SNOR, FLOW, CFLOW, Tidal Volume, THOR, ABDO, SpO2, PLTH, CPRESS, ETCO2 Wave, ETCO2, pH Sleep Architecture Sleep Stages Time at Lights Off 10:14:09 PM STAGES Time (min.) TST (%) Time at Lights On 5:12:39 AM Wake 64.0 -- Total Recording Time (TRT) 418.50 min. N1 11.0 3 Total Sleep Period (TSP) 369.0 min. N2 217.0 61 Total Sleep Time (TST) 354.5min. N3 97.0 27 Awake Time 64.0 min. REM 29.5 8 Wake after Sleep Onset 17.0 min. Sleep Efficiency (SE) 85 % Sleep Onset Latency (CANDY) 47.0 min. Number of Stage 1 Shifts None Awakenings 13 Stage Changes 50 Number of REM periods 5 REM 29.5 8 REM Latency 71.0 min. NREM 325.0 92 Body Position Analysis Supine Right Left Side Prone Vertical Total Sleep Time (min.) 246.7 0.0 164.9 164.94 0.0 0.0 Total Sleep Time (%) 53% 0% 47% 47 0% N/A% Total Sleep Time REM (min.) 14.5 0.0 15.0 None 0.0 0.0 Total Sleep Time NREM (min.) 175.1 0.0 149.9 None 0.0 0.0 Intermittent Wake (min.) 57.1 0.0 6.9 None 0.0 0.0 Total Sleep Period (%) 55% None None None None None Arousals Myoclonus (PLM) * Events Count Index Events Count Index Spontaneous 7 1 Events Awake (PLMW) 33 30.9 Respiratory 0 0.0 Events Asleep w/ Arousal (PLMA) 10 1.7 PLM 10 2 Events Asleep w/o Arousal (PLMS) 103 17.4 Snoring 0 0 Total Asleep 113 19.1 Total 17 3 Total 146 21 Respiratory Analysis * CA OA MA CH H RERA Total Count 1 0 0 0 4 0 5 Index 0.2 0.0 0.0 0 0.7 0 0.8 Mean Duration 12.6 0.0 0.0 0.00 15.4 0.0 14.8 Longest Duration 12.6 0.0 0.0 0.00 0.0 0.0 20.2 Respiratory Event Summary Total Supine ~Supine Right Left Prone REM NREM Apneas Count 1 0 1 N/A 1 N/A 0 1 Index 0.2 0 0 N/A 0.4 N/A 0 0 Hypopneas (4% Desat) Count 4 4 0 N/A 0 N/A 0 4 Index 0.7 1.3 0 N/A 0.0 N/A 0.0 0.7 Apneas & All Hypopneas Count 5 4 1 N/A 1 N/A 0 5 Index 0.8 1 0 N/A 0 N/A 0.0 0.9 Respiratory Events (Regional Manager+All Hyp+RERA) Count 5 4 1 N/A 1 N/A 0 5 Index 0.8 1 0 N/A 0.4 N/A 0.0 0.9 Respiratory Related Arousal Count 0 4 0 N/A 0 N/A 0 0 Index 0.0 0 0 N/A 0 N/A 0 0 Snoring Analysis Supine Right Left Prone REM NREM Total Snore duration 6.2 min Snores count 127 N/A 165 N/A 1 291 292 Snore mean duration 1.3 Sec Snores index 40 N/A 60 N/A 2.0 53.7 49.4 TST with snoring (%) 1.7% Desaturation Event Summary: Minimum %SpO2 Event Count Mean/Min/Max Duration(sec.) Desaturation Index % Time In Bed > 90 12 23.8 / 11.8 / 39.0 2.1 82.9 86 - 90 1 34.2 / 34.2 / 34.2 0.8 17.1 81 - 85 0 N/A 0.0 0.0 76 - 80 0 N/A 0.0 0.0 71 - 75 0 N/A 0.0 0.0 66 - 70 0 N/A 0.0 0.0 61 - 65 0 N/A 0.0 0.0 56 - 60 0 N/A 0.0 0.0 51 - 55 0 N/A 0.0 0.0 < 50 0 N/A 0.0 0.0 Total REM NREM Awake <50% 0.0 min. 0.0 min. 0.0 min. 0.0 min. 51 - 60% 0.0 min. 0.0 min. 0.0 min. 0.0 min. 61 - 70% 0.0 min. 0.0 min. 0.0 min. 0.0 min. 71 - 80% 0.0 min. 0.0 min. 0.0 min. 0.0 min. 81 - 90% 71.1 min. 2.8 min. 57.1 min. 11.2 min. 91 - 100% 344.7 min. 26.7 min. 267.1 min. 50.9 min. Average 92 93 92 92 Minimum SpO2 87 87 88 87 Desaturation Event Index 1.9 0.0 1.8 2.8 # Desat. Events below 89% 1 N/A 1 N/A Time(%) with Saturation below 89% 0.2 0.1 0.1 0.1 Time(min.) with Saturation below 89% 1.0 0.2 0.5 0.3 Time (mins) REM (mins) NREM (mins) % of TST SpO2 Below 90% 3 N/A N3 2.7 SpO2 Below 88% 0 0 0 0 Heart Rate Analysis Min (bpm) Max (bpm) Average (bpm) Awake 57 93 68 NREM 50 91 63 REM 63 83 70 Overall 50 91 63 Supplemental O2 Values Minimum O2 level: None Value Start Time End Time Hop Grower Comments Mr. Landon slept in the left and supine positions. No cardiac arrhythmia noted. Some leg movements were noted. No bruxism noted. Snoring was noted and scored as a 1 on a scale of 1 through 5. (0=no snoring, 5=snoring loud enough to be heard through a closed door or down the [address]ines way). He did not use the restroom during the night. He stated that he slept about the same as when at home. The final report will be interpreted and signed by a sleep physician. The completed physician report will then be placed in the patient medical record. Therapy (cm H2O) 0 TIB (min.) 418.5 TST (min.) 354.5 Sleep Onset (min.) 47.0 REM Onset From Sleep (min.) 71.0 Sleep Efficiency % 85 Wakefulness (%) 15 Wakefulness (min.) 64.0 NREM 1 (%) 3 NREM 1 (min.) 11.0 NREM 2 (%) 61 NREM 2 (min.) 217.0 NREM 3 (%) 27 NREM 3 (min.) 97.0 REM (%) 8 REM (min.) 29.5 # Arousals 17 Arousal Index 3 # Snore 292 Snore Index 49.4 AHI 0.8 AHI Supine 1 AHI Non-Supine 0 NREM AHI 0.9 REM AHI 0.0 RDI 0.8 # Obstructive Apnea 0 # Central Apnea 1 # Mixed Apnea 0 # Hypopneas 4 RERAs 0 Total Respiratory Events 5 Time Below SpO2 89% (min.) 0.8 Mean NREM SpO2 (%) 92 Mean REM SpO2 (%) 93 Mean Sleep SpO2 (%) 92 Min NREM SpO2 (%) 88 Min REM SpO2 (%) 87 Position Supine (min.) 246.7 Position Non-supine (min.) 164.9 LM Index Sleep 19.1 LM Index NREM 18.8 LM Index REM 22.4 Mean Heart Rate (bpm) 63 Min Heart Rate (bpm) 50
--- NOTE | 2017-05-25 17:55 | POLYSOMNOGRAPH REPORT ---
CLINICAL DATA: A 41-year-old male with BMI of 29.14, referred by Isis Chris. He has been having recurrent muscle tremors and muscle weakness. His has reported hearing him gasping for air at night. He is a light sleeper. He has tremors both when he is asleep and awake. His current medication is not helping his tremors. His [place] sleepiness score is 15/21. SLEEP ARCHITECTURE: Total sleep time was 354.5 minutes divided between 325 minutes of non-REM sleep and 29.5 minutes of REM sleep. His sleep latency was 47 minutes. REM latency was 71 minutes. Sleep efficiency was 85%. Wake after sleep onset was 17 minutes. Sleep consisted of stage N1 3%, stage N2 61%, stage N3 27%, and REM 8%. AROUSAL DATA: Seventeen arousals were recorded for an index of 3 per hour. Ten were due to PLMs. PERIODIC LIMB MOVEMENT DATA: Mildly elevated limb movements of sleep were noted. There were 113 limb movements during sleep noted for an index of 19.1 per hour with an arousal index of 1.7 per hour. RESPIRATORY DATA: There was no evidence of clinically significant sleep apnea seen. The AHI was 0.8. There was 1 central apneic episode, 12.6 seconds in duration. There were 4 hypopneic episodes with mean duration of 15.4 seconds. OXIMETRY DATA: No significant hypoxemia was seen. Oxygen neo was 87% during REM. Mean saturation was 92%. Time below 88% was less than 1 minute. ECHOCARDIOGRAM: Heart rates ranged from 50-91 beats per minute. No arrhythmias were noted. MEDICAL CLERICAL ASSISTANT'S COMMENTS: The patient slept in the left and supine position. Snoring was mild, rated 1 on a scale of 1-5. Some intermittent leg movements were noted without significant arousals. IMPRESSION: 1. No evidence of clinically significant sleep apnea/hypopnea or nocturnal hypoxemia. 2. Mildly elevated limb movements during sleep consistent with very mild periodic limb movement disorder. RECOMMENDATIONS: The patient should continue to practice good sleep hygiene. There is no need for CPAP or oxygen. Treatment for his limb movements both awake and asleep is deferred to neurology. [facility] SYSTEM[facility]
== END | disposition home or self-care (01) ==
LOC: C.NEUR 20:00
PROVIDERS: ATTEND Physician Assistant
DX: R42 Dizziness and giddiness (principal); R53.83 Other fatigue; M62.81 Muscle weakness (generalized); R06.83 Snoring

== ENCOUNTER → 2017-09-20 | Outpatient (CLI) | payer OTHER ==
--- NOTE | 2017-09-20 15:15 | DIAGNOSTIC IMAGING REPORT ---
CHEST 2 VIEWS ROUTINE HISTORY: R06.02 Shortness of ozozxtC08.9 Fluid [id number] COMPARISON: Chest 08/25/2017. FINDINGS: Trace bilateral pleural fusions, unchanged. The lungs are clear. The heart is normal in size. No pleural effusions. No pneumothorax. IMPRESSION: Trace bilateral pleural effusions. This remains unchanged. Electronically signed by: Ry Beard M.D. 09/20/2017 3:14 PM Dictated Date/Time: 09/20/2017 3:12 PM
== END | disposition home or self-care (01) ==
LOC: C.RAD 13:27
PROVIDERS: ATTEND Internal Medicine
DX: R06.02 Shortness of breath (principal); R60.9 Edema, unspecified

== ENCOUNTER → 2017-10-12 | Outpatient (CLI) | payer OTHER ==
[~2017-10-12] MED LIST changes: +OPTIRAY 320 IV PRN
--- NOTE | 2017-10-12 08:31 | DIAGNOSTIC IMAGING REPORT ---
CT SCAN OF THE CHEST WITH IV CONTRAST CLINICAL HISTORY: Dyspnea. Cough. COMPARISON STUDY: Chest x-ray dated 09/20/2017. TECHNIQUE: Following the IV administration of 65 cc of Optiray 320, CT scan of the thorax was performed from the thoracic inlet to the upper abdomen. Images are reviewed in the axial, sagittal, and coronal planes. IV contrast was administered without complication. A dose lowering technique was utilized adhering to the principles of ALARA. CT DOSE: 468.29 mGy.cm FINDINGS: Thyroid: Imaged portions of the thyroid gland are normal in size and attenuation. Thoracic aorta: There is mild ectasia of the ascending thoracic aorta measures up to 3.7 cm in diameter. The remainder of the thoracic aorta is normal in caliber and the arch demonstrates standard 3-vessel anatomy. No dissection is seen. Pulmonary vasculature: The pulmonary trunk is normal in caliber. There are no filling defects identified in the central pulmonary vessels to indicate pulmonary embolus. Note that this examination was not protocoled for evaluation of the pulmonary arteries. Heart: The heart is enlarged and there is trace pericardial effusion. Lungs and pleural spaces: There are small pleural effusions with dependent atelectasis. There is no airspace consolidation typical for pneumonia. The trachea and central airways are clear. Mediastinum: There is no mediastinal lymphadenopathy. Jacy: Clear. Axillae: There is no axillary lymphadenopathy. Upper abdomen: The liver is enlarged and steatotic. Skeletal structures: No lytic or blastic bony lesions are seen. IMPRESSION: 1. Cardiomegaly. 2. There are small pleural effusions with bibasilar atelectasis. 3. Hepatic steatosis. 4. There is mild ectasia of the ascending thoracic aorta which measures up to 3.7 cm. Electronically signed by: Luis A Flowers M.D. 10/12/2017 8:30 AM Dictated Date/Time: 10/12/2017 8:25 AM
== END | disposition home or self-care (01) ==
LOC: C.CTS 08:04
PROVIDERS: ATTEND Physician Assistant
DX: J90 Pleural effusion, not elsewhere classified (principal); J98.11 Atelectasis; I51.7 Cardiomegaly; R13.10 Dysphagia, unspecified